=== PATIENT | female | born 1955 | race Two or more races ===

== ENCOUNTER → 2023-09-03 10:44 | Outpatient (REF) | payer MEDICARE, SELFPAY | LOC: HWWDC 10:44 | PROVIDERS: ATTENDING PHYSICIAN Family Medicine | DX: Z12.31 Encounter for screening mammogram for malignant neoplasm of breast (principal) | CPT/HCPCS: 77063; 77067 ==

== ENCOUNTER 2023-10-14 21:50 | Inpatient (IN) | payer MEDICARE, SELFPAY ==
[2023-10-14 15:55] VITALS: BP 132/95
[2023-10-14 16:16] LABS: % Basophils 0.4 % (0-2); % Eosinophils 1.7 % (0-6); % Immature Granulocytes 0.5 % (0-0.5); % Lymphocytes 13.7 % (20.5-51.1); % Monocytes 7.7 % (1.7-9.3); Absolute Basophils 0.1 10^3/uL (0-0.2); Absolute Eosinophils 0.3 10^3/uL (0-0.7); Absolute Immature Granulocytes 0.1 10^3/uL (0-0.05); Absolute Lymphocytes 2.3 10^3/uL (1.2-3.4); Absolute Monocytes 1.3 10^3/uL (0.1-0.6); Absolute Neutrophils 12.5 10^3/uL (1.4-6.5); Hematocrit 43.3 % (37.0-47.0); Mean Corp Hgb Conc. 34.6 g/dL (33.0-37.0); Mean Corpuscular Hgb 29.9 pg (27.0-31.0); Mean Corpuscular Volume 86.3 fL (81.0-99.0); Mean Platelet Volume 9.4 fL (7.4-10.4); Nucleated Red Blood Cells % 0 %; Platelet Count 460 10^3/uL (130-400); Red Blood Cell Count 5.02 10^6/uL (4.20-5.40); Red Cell Dist. Width 12.2 % (11.5-14.5); White Blood Cell Count 16.5 10^3/uL (4.8-10.8)
[2023-10-14 16:29] LABS: ALT (SGPT) 34 U/L (0-35); AST (SGOT) 28 U/L (14-36); Albumin 4.2 g/dl (3.5-5.0); Alkaline Phosphatase 114 U/L (38-126); Blood Urea Nitrogen 15 mg/dl (7-17); Calcium 9.9 mg/dl (8.4-10.2); Carbon Dioxide 27 mmol/L (22-30); Chloride 100 mmol/L (98-107); Glucose 142 mg/dl (70-99); Potassium 3.8 mmol/L (3.5-5.1); Sodium 136 mmol/L (135-145); Total Protein 7.3 g/dl (6.3-8.2); eGFR > 60.00
[2023-10-14 16:41] LABS: Troponin I < 0.012 ng/ml
[2023-10-14 18:33] VITALS: BMI 40.6
[2023-10-14] MEDS: NSS 1000 IV (18:46)
[2023-10-14 19:00] VITALS: BP 131/81
[2023-10-14 19:07] LABS: COVID-19 Antigen Negative (Negative)
[2023-10-14] MEDS: ZOFRAN 4 MG IV (19:31)
--- NOTE | 2023-10-14 19:33 | ED.GENMED ---
History of Present Illness
General
Chief Complaint: Heart Rate Problem
Source: patient
Exam Limitations: none
Time Seen by Provider: 10/14/23 18:29
Travel History
Have you had any contact with someone who has COVID-19?: No
Do you have any symptoms of coronavirus? Fever > 100 degrees, chills, cough, shortness of breath, sore throat, loss of taste or smell, muscle aches, or headache?: No
History of Present Illness
History of Present Illness:
68-year-old female who presents with abdominal pain. Patient presents with right lower quadrant abdominal pain. She admits that she has had a little bit of diarrhea yesterday. No stool today. Has had vomiting and loss of appetite. Symptoms
began this past . Symptoms have persisted and she was advised to come here by her primary care doctor. Has had a history of but no other intra-abdominal surgeries. No shortness of breath.
Past History
Past History
ED Past Medical History: Hypercholesterolemia
ED Past Surgical History: and Orthopedic
Phy Exam
Physical Exam
Physical Exam:
CONSTITUTIONAL Patient alert and oriented to person, place and time. Vital signs reviewed.
HEAD atraumatic, normocephalic.
EYES eyelids normal to inspection, Pupils equally round and reactive to light, Extraocular muscles intact, Conjunctiva normal, Sclera normal.
NECK normal range of motion, Trachea midline, no jugular venous distention.
RESPIRATORY CHEST No respiratory distress noted, Chest expansion equal, Bilateral breath sounds clear.
CARDIOVASCULAR regular and tachycardic
ABDOMEN abdomen significantly distended with no bowel sounds. Tympanitic. Moderate right lower quadrant tenderness, no rebound
BACK normal inspection, no obvious deformities
UPPER EXTREMITY range of motion normal, Motor strength normal, no cyanosis, no edema.
LOWER EXTREMITY range of motion normal, Motor strength normal, no cyanosis, no edema.
NEURO Speech normal, No focal motor deficits, [place] coma scale 15, Memory normal, Cranial Nerves intact to screening exam.
SKIN skin warm, dry, and normal in color.
PSYCHIATRIC patient oriented to person place and time, Normal affect.
Course
Orders/Labs/Results
Orders:
Orders
10/14/23 Dinner
NPO
Allow oral meds: No
Allow clear liquids: No
10/14/23 16:00
Electrocardiogram (*1) Urgent
Reason for Study: Tachycardia
10/14/23 16:10
CMP [Comprehensive Metabolic Panel] Urgent
Complete Blood Count/With Diff Urgent
Troponin I Urgent
10/14/23 18:29
0.9% Sodium Chloride 1000 ml [Nss] 1,000 ml IV BOLUS
10/14/23 18:44
COVID-19 Antigen Urgent
Source: Nasal Swab
Influenza A+B Rapid Molecular Urgent
MYRIAM Source: Nasal Swab
Specimen Description:
10/14/23 19:26
CT Abd/Pel (IV only)-DH only Urgent
Comment:
Reason For Exam: severe RLQ pain, vomiting, abd distention
HYDROmorphone [Dilaudid] 1 mg IV NOW STA
Ondansetron Injectable [Zofran] 4 mg IV NOW STA
10/14/23 19:45
Urinalysis Reflex To Culture Urgent
Date Specimen was Collected: 10/14/23
Time Specimen was Collected: 19:39
Urine Microscopic Reflex Cult Urgent
Urine Culture Urgent
MYRIAM Source: U
Specimen Description:
Date Specimen was Collected: 10/14/23
Time Specimen was Collected: 19:39
10/14/23 20:31
Piperacillin/Tazo 3.375 Gram [Zosyn] 3.375 gram in 50 ml IV NOW
10/14/23 20:46
Lactic Acid Stat
10/14/23 21:12
HYDROmorphone [Dilaudid] 0.25 mg IV PACU-Q5MPRN PRN
HYDROmorphone [Dilaudid] 0.5 mg IV PACU-Q5MPRN PRN
Meperidine [Demerol] 12.5 mg IV PACU-Q5MPRN PRN
Ondansetron Injectable [Zofran] 4 mg IV PACU-ONCEPRN PRN
Prochlorperazine [Compazine] 5 mg IV PACU-ONCEPRN PRN
Notify MD As Directed
Notify physician if: for SDS patients with known or suspected sleep obstructive sleep apnea, monitor in the
PACU.
Notify MD for any apneic/desaturation episodes
O2 Therapy [RESP] Urgent
Titrate/Wean O2 to maintain O2 sat greater than (%): 92
Special Instructions: -Provide supplemental oxygen to achieve O2 sat of 92% or greater.
-After 15 min, may wean O2 and discontinue if patient is able to maintain O2 sat of 92%
or greater during recovery period.
If patient is a discharge home, without oxygen therapy, notify anestheiologist if
unable to maintain O2 SAT of 92% or greater on room air for MD clearance.
10/14/23 21:13
US Anesthesia Guidance Routine
Comment:
Reason For Exam: TAP block
10/14/23 21:15
Dexamethasone Sod Phosphate [Decadron] 20 mg .ROUTE .STK-MED ONE
Lidocaine HCl/Pf [Xylocaine-Mpf 1% Vial] 50 mg .ROUTE .STK-MED ONE
Normosol (Mult Electrolytes) [Normosol-R] 1,000 ml IV PER PROTOCOL
Ondansetron Injectable [Zofran] 4 mg .ROUTE .STK-MED ONE
Propofol [Diprivan] 20 ml .ROUTE .STK-MED
Rocuronium [place] [Rocuronium] 50 mg .ROUTE .STK-MED ONE
10/14/23 21:16
Fentanyl Citrate/Pf [Sublimaze] 100 mcg .ROUTE .STK-MED ONE
Midazolam HCl [Versed] 2 mg .ROUTE .STK-MED ONE
10/14/23 21:19
Bupivacaine Mpf 0.25% [Sensorcaine-Mpf 0.25% Vial] 30 ml .ROUTE .STK-MED ONE
10/14/23 21:39
Admit Patient As Directed
Co-Sign Provider:
Level of Care: Inpatient admission
Assign to:: Medical/Surgical
Physician / Group: Haider / PETE
Diagnosis: Perforated bowel
Reason for Hospitalization: Perforated bowel
Expected length of stay greater than two midnights?: Yes
ELOS- Estimated Length of Stay in days: 7
I certify the patient meets the requirements for IP care: Yes
Code Status As Directed
Resuscitation Status: Full Code
HYDROmorphone [Dilaudid] 0.5 mg IV Q2HPRN PRN
Ketorolac [Toradol] 10 mg IV Q6HPRN PRN
Ondansetron Injectable [Zofran] 4 mg IV Q6HPRN PRN
Activity As Directed
Activity Level: Ambulate
Drains As Directed
Type: Skip Lynch
Location: Abdomen
Gastrointestinal Tubes As Directed
Type: [place] real
To suction?: Yes
Type of suction: Low intermittent
Directions to clamp NG tube: Clamp trial on 10/17 for 4 hours ending at noon
Irrigate tube?: Yes
Irrigant: Tap Water
Frequency: Q4H
Amount in mls: 30
Irrigation Directions: Irrigate Q4H and PRN
Intake/ Output As Directed
Frequency: Per unit guidelines
Vital Signs As Directed
Frequency: Per unit guidelines
10/14/23 21:40
Catheter- Indwelling As Directed
Reason for insertion: Nuvia-Op Remove POD #2
Pneumatic Compression Sleeves As Directed
Type: Knee high
DX Deep Vein Thrombosis Video Routine
10/14/23 21:41
Rx Incentive Spirometry [RESP] Routine
Frequency: q1h while awake
# of times per hour: 10
10/14/23 21:42
Rocuronium [place] [Rocuronium] 50 mg .ROUTE .STK-MED ONE
10/14/23 21:45
Normosol (Mult Electrolytes) [Normosol-R] 1,000 ml IV 80 mls/hr
10/14/23 22:00
Flush (0.9% Sodium Chloride) [Flush (Nss)] See Dose Instructions IV PER PROTOCOL
10/15/23 02:00
Acetaminophen 1000MG/100Ml [Ofirmev] 1,000 mg in 100 ml IV Q6H
Acetaminophen IV Indication:: No IN & No Enteral Access
Piperacillin/Tazo 3.375 Gram [Zosyn] 3.375 gram in 50 ml IV Q6H
10/15/23 04:44
Basic Metabolic Panel IN AM
Complete Blood Count/No Diff IN AM
10/15/23 08:00
Pantoprazole [Protonix IV] 40 mg IV DAILY
10/15/23 18:00
Enoxaparin Sodium [Lovenox] 40 mg SC QPM
10/16/23 06:00
Basic Metabolic Panel IN AM
Complete Blood Count/No Diff IN AM
10/17/23 06:27
Basic Metabolic Panel IN AM
Complete Blood Count/No Diff IN AM
Abnormal Lab Results
10/14/23 10/14/23
16:10 19:45
WBC 16.5 H 10^3/uL
(4.8-10.8)
Plt Count 460 H 10^3/uL
(130-400)
Abs Immat Gran (auto) 0.1 H 10^3/uL
(0-0.05)
Absolute Neuts (auto) 12.5 H 10^3/uL
(1.4-6.5)
Absolute Monos (auto) 1.3 H 10^3/uL
(0.1-0.6)
Neutrophils % 76.0 H %
(42.2-75.2)
Lymphocytes % 13.7 L %
(20.5-51.1)
Glucose 142 H mg/dl
(70-99)
Urine Ketones 1+ A
(Negative)
Ur Occult Blood Reflex 1+ A
(Negative)
Urine Bilirubin 1+ A
(Negative)
Leukocyte Esterase Rfl 1+ A
(Negative)
Urine RBC 3-6 A /HPF
(0-2)
Urine WBC (Reflex) 30-40 A /HPF
(0-5)
Urine Bacteria (Reflex) Few A
(Negative)
Urine Albumin (Reflex) 1+ A
(Neg - Trace)
10/14/23 16:10
10/14/23 16:10
Vital Signs
Initial and Last Documented VS:
Initial Vital Signs
Temp Pulse Resp BP Pulse Ox
99.0 F 144 18 132/95 97
10/14/23 15:55 10/14/23 15:55 10/14/23 15:55 10/14/23 15:55 10/14/23 15:55
Last Documented Vital Signs
Temp Pulse Resp BP Pulse Ox
98.1 F 92 16 149/75 95
10/22/23 14:49 10/22/23 14:49 10/22/23 14:49 10/22/23 14:49 10/22/23 14:49
*Radiology
Radiology exam reviewed: preliminary read by ED provider (Initial read by me shows free air. Likely source small bowel. Surgery consulted)
*Pulse Oximetry
Patient hypoxic: no
*EKG
Interpreted by ED Provider?: Yes
Interpretation: abnormal
Rate: tachycardiac
Rhythm: sinus
[place]: normal axis
Ischemia: non-specific ST changes
*[facility] Laboratory Assistant Interpretation
Rate: tachycardiac
Interpretation: abnormal
Rhythm: sinus
*Critical Care Note
Total Time (30-74mins, 75-104mins- exclusive of procedures): 40 minutes
Data Reviewed
Source: patient
Patient Management
Discussion with other providers: Wet Trimmer (Case discussed with general surgery) and Radiologist (Case discussed with Dr. Cheney)
Escalation/DeEscalation of care consider admission/obs:
Small bowel perforation noted. Case discussed with surgery. Antibiotics given
ED Attending Note
-
Portions of this chart may have been created with voice recognition software.� Occasional wrong word or��sound alike� substitutions may have occurred due to the inherent limitations of voice recognition software.
Discharge Plan
Departure
Patient Disposition: Admit
Date of Disposition: 10/14/23
Time of Disposition: 20:50
Admit to: OR
Presentation/result/management discussed w/ accepting MD/DO: surgery
Discharge Problem:
SBO (small bowel obstruction), Perforated abdominal viscus
Interventions
Interventions:
*Risk Screen - Suicide Last Done: 10/15/23 01:15
*General Assessment Last Done: 10/14/23 19:05
*Neglect/Abuse Screening Last Done: 10/14/23 19:05
ED- Fall Risk Assessment Last Done: 10/14/23 19:05
*ED COVID-19 Vaccine History Last Done: 10/15/23 01:10
*Nursing Disposition Last Done: 10/14/23 21:17
ED- Cardiac Assessment Last Done: 10/14/23 19:21
ED- Pulmonary Assessment Last Done: 10/14/23 19:21
Discharge Date and Time
Discharge Date/Time: 10/14/23 21:18
[2023-10-14] MEDS: DILAUDID 1 MG IV (19:41)
[2023-10-14 19:52] LABS: Urine Albumin 1+ (Neg - Trace); Urine Bilirubin 1+ (Negative); Urine Character Clear (Clear); Urine Color Yellow; Urine Glucose Negative (Negative); Urine Ketone 1+ (Negative); Urine Leukocyte 1+ (Negative); Urine Nitrite Negative (Negative); Urine Occult Blood 1+ (Negative); Urine Specific Gravity 1.025 (<1.030); Urine Urobilinogen 1+ (Neg - 1+)
[2023-10-14 20:00] VITALS: BP 114/75
[2023-10-14 20:02] LABS: Urine Hyaline Cast >15 /LPF (0-2); Urine Squamous Cell 0-2 /LPF (Few)
[2023-10-14 20:03] LABS: Urine Bacteria Few (Negative); Urine White Cell 30-40 /HPF (0-5)
[2023-10-14] MEDS: ZOSYN 50 IV (20:51)
[2023-10-14 21:01] VITALS: BP 121/87
[2023-10-14 21:05] LABS: Lactic Acid 1.2 mmol/L (0.7-2.0)
--- NOTE | 2023-10-14 21:32 | W.SUR.PREOP ---
Pre-Operative Surgical Note
-
I have examined this patient prior to the performance of the scheduled procedure.
The patient's condition is unchanged from the time of the current History and
Physical and the patient is able to undergo the scheduled procedure.
--- NOTE | 2023-10-14 21:32 | HPS.HSE ---
Family Physician
-
Family Physician: Mitzy Hurst MD
Chief Complaint
-
Abdominal pain
History of Present Illness
Patient is a 68 yo F with a PMH of morbid obesity, HLD, osteoarthritis, s/p x 2 and s/p tubal ligation. Ms. Sin presents to the hospital with approximately 4 to 5 days of worsening abdominal pain. She states that her symptoms began
acutely on . She initially attributed her symptoms to a stomach bug. She called her PCP today who instructed her to present to the ED. Associated fevers and chills. Associated nausea, and 1 episode of emesis. Looser stools yesterday.
No recent flatus or BMs today. No prior similar episodes. She takes meloxicam for osteoarthritis of her hands. She reports having a colonoscopy 2 years ago with a single polyp removed (No report available).
Medical History
Past Medical History
Past Medical History: Reports Hypercholesterolemia and Other (Morbid obesity, osteoarthritis)
Past Surgical History: Reports and Gynocological (Tubal ligation)
Social History
Tobacco: Former Smoker
Alcohol: Occasional
Drug: None
Family History
Family History: Not pertinent
Allergies / Home Medications
Allergies reflects when Allergies were last updated in [employer].
Home Medications with original date entered in [employer]
Allergy/Medication List:
NKDA
Review of Systems
-
A 12 point ROS was completed and negative except as noted: Yes
Physical Exam
Vital Signs
Vital Signs
Temp Pulse Resp BP Pulse Ox
99.1 F 111 12 114/75 93
10/14/23 19:00 10/14/23 21:00 10/14/23 21:00 10/14/23 20:00 10/14/23 21:00
Physical Exam
General: Well Developed, Well Nourished, No Apparent Distress and Pain
HEENT: NormoCephalic and Anicteric
Respiratory: Non Labored Respirations
Cardiac: Irregular Rhythm (Tachycardic)
GI: Soft, Tender (Diffusely), Distended and Other (Morbid obesity limits exam, peritoneal with involuntary guarding, no rebound)
Musculoskeletal: No Edema
Skin: Warm and Dry
Neuro: Nonfocal/grossly intact
Laboratory Results
-
10/14/23 16:10
10/14/23 16:10
Laboratory Results
Lactic Acid 1.2 mmol/L (0.7-2.0) 10/14/23 20:46
Total Bilirubin 1.0 mg/dl (0.2-1.3) 10/14/23 16:10
AST 28 U/L (14-36) 10/14/23 16:10
ALT 34 U/L (0-35) 10/14/23 16:10
Alkaline Phosphatase 114 U/L (38-126) 10/14/23 16:10
Troponin I < 0.012 ng/ml 10/14/23 16:10
Data Reviewed
-
CT Scan: Image Personally Visualized and interpreted
Lab Data: Labs Reviewed by me
Impression/Plan
-
IMPRESSION:
Patient is a 68 yo F p/w perforated viscus
Differential for causes of perforated viscus were discussed. Specifically we discussed gastric or duodenal ulcers, small bowel diverticuli, and diverticulosis. CT scan imaging was reviewed and notable for moderate volume of free air with
significant inflammation and dilation of the small bowel. Given the degree of free air and signs of sepsis with tachycardia, fevers, and elevated WBC recommend operative exploration. We discussed that nonoperative management strategies
(antibiotics) were likely to be insufficient. Patient agrees to proceed with surgery.
Plan for a exploratory laparotomy, possible bowel resection, possible ostomy. The procedure itself, as well as the risks, benefits, and alternatives was discussed. Specifically, we discussed the risks of bleeding, infection, injury to surrounding
structures (bowel, bladder), hernia formation, wound complications, anastomotic leak, and cardiopulmonary complications from general anesthesia. Typical postprocedure recovery was discussed. All questions answered. Consent signed.
PLAN:
-- Exploratory laparotomy, possible bowel resection, possible ostomy
-- NPO, IVF
-- Antibiotics: Zosyn
-- Admit postoperatively, level of care TBD based on operative findings and stability
--- NOTE | 2023-10-14 23:37 | W.IMMPOSTOP ---
Addendum entered and electronically signed by Irvin Maloney MD 10/14/23 23:54:
[facility]# [id number]
Original Note:
Surgical Immed Post Op Note
-
Primary Surgeon: Haider
Assisting Surgeon: None
Pre-op Diagnosis: Perforated viscous
Post-op Diagnosis: Perforated small bowel
Procedure Performed: Exploratory laparotomy, small bowel resection with primary anastomosis
Anesthesia Type: General
Specimen / Cultures:
1. Small bowel
Estimated Blood Loss: 23 cc
Complications: None
Operative Findings:
1. Minimal contamination, small bowel adherent down to sigmoid mesentery, small pinpoint hole identified in jejunum
2. Sigmoid without significant diverticula, healthy pliable, no evidence of perforation, rigid sig leak test negative
3. Small bowel run from TI to LT
4. SBR with stapled [id number] anastomosis (Neil technique), staple line oversewn, mesenteric defect closed
[2023-10-14 23:55] VITALS: BP 131/81; BP 160/87
[2023-10-15] VITALS (12 sets, daily range): BP systolic 109–152; BP diastolic 46–112
[2023-10-15] MEDS: DILAUDID 0.5 MG IV ×4 (00:04→22:48)
[2023-10-15] MEDS: NORMOSOL-R 1000 IV ×3 (00:30→16:28)
--- NOTE | 2023-10-15 01:00 | PTCARENOTE ---
Received pt from PACU s/p Exploratory laparotomy, small bowel resection with primary anastomosis
[2023-10-15] MEDS: ZOSYN 50 IV ×4 (01:26→20:35)
--- NOTE | 2023-10-15 01:30 | PTCARENOTE ---
Received pt from PACU s/p exploratory laparotomy, small bowel resection with primary anastomosis. Medsurg order> afebrile, HR124, RR18, BP127/86, pox 93% 4LNC, no c/o pain. Normosol infusing thru RAC at 120ml/hr. Lt nare NG tube- low intermittent
suction. Midline abdominal Aquacell dressing w/ scant drainage. PMH and medications reviewed by this RN and pt. Plan of care discussed. Pt oriented to room. Call [place] within reach.
[2023-10-15] MEDS: NSS (PRESERVATIVE FREE) 0.125 ML IV (02:04)
[2023-10-15] MEDS: ATIVAN 0.25 MG IV (02:04)
[2023-10-15] MEDS: OFIRMEV 100 IV ×3 (02:21→20:13)
[2023-10-15 05:23] LABS: Hematocrit 41.2 % (37.0-47.0); Hemoglobin 13.7 g/dL (12.0-16.0); Mean Corp Hgb Conc. 33.3 g/dL (33.0-37.0); Mean Corpuscular Hgb 29.7 pg (27.0-31.0); Mean Corpuscular Volume 89.4 fL (81.0-99.0); Mean Platelet Volume 9.2 fL (7.4-10.4); Platelet Count 397 10^3/uL (130-400); Red Blood Cell Count 4.61 10^6/uL (4.20-5.40); Red Cell Dist. Width 12.4 % (11.5-14.5); White Blood Cell Count 17.3 10^3/uL (4.8-10.8)
[2023-10-15 05:49] LABS: Blood Urea Nitrogen 13 mg/dl (7-17); Calcium 8.7 mg/dl (8.4-10.2); Carbon Dioxide 23 mmol/L (22-30); Chloride 104 mmol/L (98-107); Estimated Creatinine Clearance 95 ml/min; Glucose 148 mg/dl (70-99); Potassium 4.2 mmol/L (3.5-5.1); Sodium 137 mmol/L (135-145); eGFR > 60.00
--- NOTE | 2023-10-15 07:44 | W.PN.GS2 ---
Today's Communication / Plan
-
-- NPO, NGT; X-ray to confirm placement
-- IVF, dehydration on presentation
-- Abx: Zosyn, sepsis present on presentation, plan for total of 10 days
Assessment / Plan
-
Patient is a 68 yo F POD#1 s/p exploratory laparotomy, small bowel resection with primary anastomosis, rigid sigmoidoscopy
Recovering well. No postoperative concerns. NGT found to be coiled in back of throat will obtain x-ray to confirm placement and either replace or reposition based on this imaging.
-- NPO, NGT; X-ray to confirm placement
-- IVF, dehydration on presentation
-- Abx: Zosyn, sepsis present on presentation, plan for total of 10 days
-- Pain control: Tylenol, Toradol, IV Dilaudid PRN
-- Perera, orders for removal on POD#2
-- Holding home medications while NPO
-- DVT: Lovenox
-- GI: Protonix while NPO with NGT
-- Floor status
Subjective Data
-
Date of Service: October 15, 2023
Feels improved. Abdominal soreness and bloating. No nausea or emesis. No flatus or BM. No fevers.
Objective Data
-
Intake and Output
10/14/23 10/15/23 10/16/23
06:59 06:59 06:59
Intake Total 2029 / 2029
Output Total 280 / 280
Balance 1750 / 1750
Intake:
IV fluids (Total) 1820 / 1820
Normosol 100 / 100
nss 1000 / 1000
IV piggybacks 150 / 150
Amount instilled into GI Tube ( 60 / 60
Total)
[place] S[place] 60 / 60
Output:
Gastrointestinal tube output ( 30 / 30
Total)
[place] 30 / 30
Urine, [place] 250 / 250
Vital Signs
Temp Pulse Resp BP Pulse Ox
97.9 F 105 22 119/54 95
10/15/23 05:42 10/15/23 05:42 10/15/23 05:42 10/15/23 05:42 10/15/23 05:42
Lab Results
10/15/23 04:44
10/15/23 04:44
Calcium 8.7 mg/dl (8.4-10.2) 10/15/23 04:44
Total Bilirubin 1.0 mg/dl (0.2-1.3) 10/14/23 16:10
AST 28 U/L (14-36) 10/14/23 16:10
ALT 34 U/L (0-35) 10/14/23 16:10
Alkaline Phosphatase 114 U/L (38-126) 10/14/23 16:10
Total Protein 7.3 g/dl (6.3-8.2) 10/14/23 16:10
Albumin 4.2 g/dl (3.5-5.0) 10/14/23 16:10
Physical Exam
-
Gen: NAD
HEENT: minimal outputs
Abd: soft, obese, moderate tenderness to palpation, less distended, non-peritoneal, midline with shadowing at inferior aspect of dressing
[2023-10-15] MEDS: PROTONIX IV 40 MG IV (07:55)
[2023-10-15] MEDS: NSS (PRESERVATIVE FREE) 10 ML IV (07:55)
--- NOTE | 2023-10-15 13:01 | CM ---
Reviewed the chart notes and spoke with the patient at the bedside. The resides alone in a mobile home with four steps to enter. The patient reports no DME/VN/SNF in the past. The patient confirmed her pharmacy of choice [facility]. Patient currently with supplemental O2 and a NGT. CM continues to be available to patient/family and is monitoring medical plan for needs at discharge.
Plan: Discharge to home when medically stable. No needs anticipated.
[2023-10-15] MEDS: OFIRMEV IV (13:17)
[2023-10-15] MEDS: TORADOL 10 MG IV (13:26)
--- NOTE | 2023-10-15 15:26 | PTCARENOTE ---
Morgan text to Hadier RESENDIZ about pt's 1530 temp being 100.5.
[2023-10-15] MEDS: LOVENOX 40 MG SC (17:24)
[2023-10-16] MEDS: ZOSYN 50 IV ×4 (01:02→19:50)
[2023-10-16] MEDS: NORMOSOL-R 1000 IV ×3 (01:02→21:20)
[2023-10-16] MEDS: DILAUDID 0.5 MG IV ×2 (01:54→08:43)
[2023-10-16 03:58] VITALS: BP 132/85
[2023-10-16 06:15] LABS: Hematocrit 33.2 % (37.0-47.0); Mean Corp Hgb Conc. 33.1 g/dL (33.0-37.0); Mean Corpuscular Volume 90.5 fL (81.0-99.0); Mean Platelet Volume 9.1 fL (7.4-10.4); Platelet Count 299 10^3/uL (130-400); Red Blood Cell Count 3.67 10^6/uL (4.20-5.40); Red Cell Dist. Width 12.5 % (11.5-14.5); White Blood Cell Count 12.8 10^3/uL (4.8-10.8)
[2023-10-16 06:49] LABS: Blood Urea Nitrogen 9 mg/dl (7-17); Calcium 8.4 mg/dl (8.4-10.2); Carbon Dioxide 32 mmol/L (22-30); Chloride 102 mmol/L (98-107); Estimated Creatinine Clearance 95 ml/min; Glucose 88 mg/dl (70-99); Potassium 4.1 mmol/L (3.5-5.1); Sodium 135 mmol/L (135-145); eGFR > 60.00
[2023-10-16 07:50] VITALS: BP 131/87
[2023-10-16] MEDS: NSS (PRESERVATIVE FREE) 10 ML IV (08:39)
[2023-10-16] MEDS: PROTONIX IV 40 MG IV (08:39)
--- NOTE | 2023-10-16 09:06 | W.PN.GS2 ---
Today's Communication / Plan
-
-- No major changes
-- Benadryl for sleep aid
-- Continue NPO, IVF, abx
Assessment / Plan
-
Patient is a 68 yo F POD#2 s/p exploratory laparotomy, small bowel resection with primary anastomosis, rigid sigmoidoscopy
Expected ileus and recovery following sepsis on presentation with perforated viscous.
-- NPO, NGT
-- IVF decrease rate
-- Abx: Zosyn, sepsis present on presentation, plan for total of 10 days
-- Pain control: Tylenol, Toradol, IV Dilaudid PRN
-- Dilma, removed this AM
-- Holding home medications while NPO, Bendryl for sleep
-- DVT: Lovenox
-- GI: Protonix while NPO with NGT
-- Floor status
Subjective Data
-
Date of Service: October 16, 2023
Reports bloating and upper abdominal pain. No nausea or emesis. No flatus ro BM. Febrile to 100.5 yesterday, currently afebrile. Denies SOB. Minimal ambulation.
Objective Data
-
Intake and Output
10/15/23 10/16/23 10/17/23
06:59 06:59 06:59
Intake Total 2029 2820 / 2820
Output Total 280 / 280 2150 / 2150
Balance 1750 / 1750 670 / 670
Intake:
Oral fluids 0 / 0
IV fluids (Total) 1820 / 1820 2460 / 2460
Normosol 100 / 100
nss 1000 / 1000
IV piggybacks 150 / 150 200 / 200
Amount instilled into GI Tube ( 60 / 60 160 / 160
Total)
[place] 60 / 60 160 / 160
Output:
Gastrointestinal tube output ( 550 / 550
Total)
[place] 550 / 550
Urine, [place] 250 / 250 1600 / 1600
Vital Signs
Temp Pulse Resp BP Pulse Ox
99.2 F 107 18 132/85 92
10/16/23 03:58 10/16/23 03:58 10/16/23 03:58 10/16/23 03:58 10/16/23 03:58
Lab Results
10/16/23 06:00
10/16/23 06:00
Calcium 8.4 mg/dl (8.4-10.2) 10/16/23 06:00
Total Bilirubin 1.0 mg/dl (0.2-1.3) 10/14/23 16:10
AST 28 U/L (14-36) 10/14/23 16:10
ALT 34 U/L (0-35) 10/14/23 16:10
Alkaline Phosphatase 114 U/L (38-126) 10/14/23 16:10
Total Protein 7.3 g/dl (6.3-8.2) 10/14/23 16:10
Albumin 4.2 g/dl (3.5-5.0) 10/14/23 16:10
Physical Exam
-
Gen: NAD
Abd: obese, soft, tender in upper abdomen, distended, non-peritoneal, midline c/d/i
[2023-10-16] MEDS: TORADOL 10 MG IV ×2 (11:28→17:54)
--- NOTE | 2023-10-16 15:41 | CM ---
Chart reviewed and patient was admitted from home, patient lives alone. Patient with NGT, case therapist will follow with patient progress and assist with discharge planning needs.
Plan; Home when stable.
[2023-10-16 15:45] VITALS: BP 140/84
[2023-10-16] MEDS: LOVENOX 40 MG SC (17:54)
[2023-10-16 20:03] VITALS: BP 129/78
[2023-10-16] MEDS: BENADRYL 12.5 MG IV (21:17)
[2023-10-16 23:23] VITALS: BP 145/100
[2023-10-17] MEDS: ZOSYN 50 IV ×4 (01:01→19:53)
[2023-10-17 03:19] VITALS: BMI 41.7
[2023-10-17] MEDS: TORADOL 10 MG IV ×3 (03:56→17:36)
[2023-10-17 06:49] LABS: Hematocrit 30.8 % (37.0-47.0); Hemoglobin 10.4 g/dL (12.0-16.0); Mean Corp Hgb Conc. 33.8 g/dL (33.0-37.0); Mean Corpuscular Hgb 29.9 pg (27.0-31.0); Mean Corpuscular Volume 88.5 fL (81.0-99.0); Mean Platelet Volume 8.9 fL (7.4-10.4); Platelet Count 279 10^3/uL (130-400); Red Blood Cell Count 3.48 10^6/uL (4.20-5.40); Red Cell Dist. Width 12.3 % (11.5-14.5); White Blood Cell Count 10.8 10^3/uL (4.8-10.8)
[2023-10-17 07:15] LABS: Blood Urea Nitrogen 11 mg/dl (7-17); Calcium 8.2 mg/dl (8.4-10.2); Carbon Dioxide 26 mmol/L (22-30); Chloride 102 mmol/L (98-107); Estimated Creatinine Clearance 96 ml/min; Glucose 61 mg/dl (70-99); Potassium 3.6 mmol/L (3.5-5.1); Sodium 135 mmol/L (135-145); eGFR > 60.00
[2023-10-17 07:18] VITALS: BP 137/85
--- NOTE | 2023-10-17 07:38 | W.PN.GS2 ---
Today's Communication / Plan
-
-- NPO, NGT
-- mIVF
Assessment / Plan
-
Patient is a 68 yo F POD#3 s/p exploratory laparotomy, small bowel resection with primary anastomosis, rigid sigmoidoscopy
Expected ileus and recovery following sepsis on presentation with perforated viscous.
-- NPO, NGT
-- mIVF
-- Abx: Zosyn, sepsis present on presentation, plan for total of 10 days
-- Pain control: Tylenol, Toradol, IV Dilaudid PRN
-- Holding home medications while NPO, Bendryl for sleep
-- DVT: Lovenox
-- GI: Protonix while NPO with NGT
-- OOB/ambulate
-- Floor status
Subjective Data
-
Date of Service: October 17, 2023
Feels improved, less pain and bloating. Passing minimal amounts of flatus, no BM. No nausea or vomiting. Afebrile. Voiding.
Objective Data
-
Intake and Output
10/16/23 10/17/23 10/18/23
06:59 06:59 06:59
Intake Total 2820 / 2820 2340 / 2340
Output Total 2150 / 2150 600 / 600
Balance 670 / 670 1740 / 1740
Intake:
Oral fluids 0 / 0 200 / 200
IV fluids (Total) 2460 / 2460 1760 / 1760
IV piggybacks 200 / 200 200 / 200
Amount instilled into GI Tube ( 160 / 160 180 / 180
Total)
[place] S[place] 160 / 160 180 / 180
Output:
Gastrointestinal tube output ( 550 / 550 600 / 600
Total)
[place] 550 / 550 600 / 600
Urine, Perera 1600 / 1600
Other:
Number of approximated MODERATE 1
amounts of urine
Vital Signs
Temp Pulse Resp BP Pulse Ox
98.6 F 101 16 145/100 95
10/17/23 03:19 10/16/23 23:23 10/16/23 23:23 10/16/23 23:23 10/16/23 23:23
Lab Results
10/17/23 06:27
10/17/23 06:27
Calcium 8.2 mg/dl (8.4-10.2) L 10/17/23 06:27
Total Bilirubin 1.0 mg/dl (0.2-1.3) 10/14/23 16:10
AST 28 U/L (14-36) 10/14/23 16:10
ALT 34 U/L (0-35) 10/14/23 16:10
Alkaline Phosphatase 114 U/L (38-126) 10/14/23 16:10
Total Protein 7.3 g/dl (6.3-8.2) 10/14/23 16:10
Albumin 4.2 g/dl (3.5-5.0) 10/14/23 16:10
Physical Exam
-
Gen: NAD
Abd: soft, minimal tenderness, distended, non-peritoneal, dressing c/d/i
[2023-10-17] MEDS: NSS (PRESERVATIVE FREE) 10 ML IV (07:44)
[2023-10-17] MEDS: PROTONIX IV 40 MG IV (07:44)
[2023-10-17] MEDS: D5/0.45%NSS with KCL 20 MEQ 1000 IV (08:41)
--- NOTE | 2023-10-17 12:54 | CM ---
Reviewed the chart notes. Patient remains NPO with NGT. Now on RA. CM continues to be available to patient/family and is monitoring medical plan for needs at discharge.
Plan: Discharge to home when medically stable.
[2023-10-17 15:49] VITALS: BP 155/60
[2023-10-17] MEDS: LOVENOX 40 MG SC (17:04)
[2023-10-17] MEDS: BENADRYL 12.5 MG IV (21:31)
[2023-10-17 23:30] VITALS: BP 146/91
[2023-10-18] MEDS: D5/0.45%NSS with KCL 20 MEQ 1000 IV ×2 (00:10→14:13)
[2023-10-18] MEDS: TORADOL 10 MG IV ×4 (00:13→22:11)
[2023-10-18] MEDS: ZOSYN 50 IV ×4 (02:21→20:42)
[2023-10-18] MEDS: DILAUDID 0.5 MG IV (02:32)
[2023-10-18 04:46] VITALS: BMI 41.5
--- NOTE | 2023-10-18 07:43 | W.PN.GS2 ---
Today's Communication / Plan
-
-- NGT clamp trial
Assessment / Plan
-
Patient is a 68 yo F POD#4 s/p exploratory laparotomy, small bowel resection with primary anastomosis, rigid sigmoidoscopy
Expected ileus and recovery following sepsis on presentation with perforated viscous. Signs of clinical recovery.
-- NGT clamp trial
-- NPO
-- mIVF
-- Abx: Zosyn, sepsis present on presentation, plan for total of 10 days
-- Pain control: Tylenol, Toradol, IV Dilaudid PRN
-- Holding home medications while NPO, Bendryl for sleep
-- DVT: Lovenox
-- GI: Protonix while NPO with NGT
-- OOB/ambulate
-- Floor status
Subjective Data
-
Date of Service: October 18, 2023
Feels improved. No major complaints. No nausea or vomiting. Passing flatus, no BM. Ambulating. Voiding. Afebrile.
Objective Data
-
Intake and Output
10/17/23 10/18/23 10/19/23
06:59 06:59 06:59
Intake Total 2340 / 2340 2426 / 2426
Output Total 600 / 600 600 / 600
Balance 1740 / 1740 1826 / 1826
Intake:
Oral fluids 200 / 200 480 / 480
IV fluids (Total) 1760 / 1760 1650 / 1650
IV piggybacks 200 / 200 200 / 200
Amount instilled into GI Tube ( 180 / 180 96 / 96
Total)
[place] Sump 180 / 180 96 / 96
Output:
Gastrointestinal tube output ( 600 / 600 600 / 600
Total)
[place]ty Sump 600 / 600 600 / 600
Other:
Number of approximated MODERATE 1 5
amounts of urine
Vital Signs
Temp Pulse Resp BP Pulse Ox
98.4 F 90 17 146/91 95
10/17/23 23:30 10/17/23 23:30 10/17/23 23:30 10/17/23 23:30 10/17/23 23:30
Lab Results
10/17/23 06:27
10/17/23 06:27
Calcium 8.2 mg/dl (8.4-10.2) L 10/17/23 06:27
Total Bilirubin 1.0 mg/dl (0.2-1.3) 10/14/23 16:10
AST 28 U/L (14-36) 10/14/23 16:10
ALT 34 U/L (0-35) 10/14/23 16:10
Alkaline Phosphatase 114 U/L (38-126) 10/14/23 16:10
Total Protein 7.3 g/dl (6.3-8.2) 10/14/23 16:10
Albumin 4.2 g/dl (3.5-5.0) 10/14/23 16:10
Physical Exam
-
Gen: NAD
Abd: soft, obese, mildly tender, mildly distended, non-peritoneal, midline dressing with minimal shadowing inferiorly
[2023-10-18 07:55] VITALS: BP 163/92
[2023-10-18] MEDS: NSS (PRESERVATIVE FREE) 10 ML IV (08:18)
[2023-10-18] MEDS: PROTONIX IV 40 MG IV (08:24)
[2023-10-18 10:56] VITALS: BMI 41.5
--- NOTE | 2023-10-18 12:57 | CM ---
Reviewed the chart notes. Per surgery, NGT clamp trial and NPO continues. CM continues to be available to patient/family and is monitoring medical plan for needs at discharge.
Plan: Discharge to home when medically stable.
[2023-10-18 15:47] VITALS: BP 137/89
[2023-10-18] MEDS: LOVENOX 40 MG SC (17:42)
[2023-10-18] MEDS: ZOLOFT 50 MG PO (20:42)
[2023-10-18] MEDS: BENADRYL 12.5 MG IV (22:14)
[2023-10-18 23:37] VITALS: BP 150/85
[2023-10-19] MEDS: ZOSYN 50 IV ×4 (03:51→20:43)
[2023-10-19 07:49] VITALS: BP 153/93
[2023-10-19] MEDS: NSS (PRESERVATIVE FREE) 10 ML IV (09:49)
[2023-10-19] MEDS: PROTONIX IV 40 MG IV (09:50)
[2023-10-19] MEDS: TORADOL 10 MG IV (09:55)
--- NOTE | 2023-10-19 11:34 | W.PN.GS2 ---
Today's Communication / Plan
-
Advance to FLD
Assessment / Plan
-
Patient is a 68 yo F POD#5 s/p exploratory laparotomy, small bowel resection with primary anastomosis, rigid sigmoidoscopy
Expected ileus and recovery following sepsis on presentation with perforated viscous.
Signs of clinical recovery.
NGT out yesterday, tolerating clears with +bm/flatus
-- Advance to FLD
-- Abx: Zosyn, sepsis present on presentation, plan for total of 10 days
-- Pain control: Tylenol, Toradol, PO Tramadol, dilaudid for breakthrough
-- Resume Zoloft
-- DVT ppx: Lovenox
-- GI ppx: Protonix
-- OOB/ambulate
-- OK to shower
Subjective Data
-
Date of Service: October 19, 2023
Patient seen and examined at bedside with Dr. Klein. OOB to chair and in her own [facility]. Tolerating clears, denies n/v. Passing stools/flatus. Pain well managed.
Objective Data
-
Intake and Output
10/18/23 10/19/23 10/20/23
06:59 06:59 06:59
Intake Total 2426 / 2426 100 / 100 580 / 580
Output Total 600 / 600
Balance 1826 / 1826 100 / 100 580 / 580
Intake:
Oral fluids 480 / 480 580 / 580
IV fluids (Total) 1650 / 1650
IV piggybacks 200 / 200 100 / 100
Amount instilled into GI Tube (
Total)
Floyd Sump /
Output:
Gastrointestinal tube output ( 600 / 600
Total)
Floyd Sump 600 / 600
Other:
Number of approximated MODERATE 5 2 2
amounts of urine
Vital Signs
Temp Pulse Resp BP Pulse Ox
98.8 F 87 14 153/93 98
10/19/23 07:49 10/19/23 07:49 10/19/23 07:49 10/19/23 07:49 10/19/23 07:49
Lab Results
10/17/23 06:27
10/17/23 06:27
Calcium 8.2 mg/dl (8.4-10.2) L 10/17/23 06:27
Total Bilirubin 1.0 mg/dl (0.2-1.3) 10/14/23 16:10
AST 28 U/L (14-36) 10/14/23 16:10
ALT 34 U/L (0-35) 10/14/23 16:10
Alkaline Phosphatase 114 U/L (38-126) 10/14/23 16:10
Total Protein 7.3 g/dl (6.3-8.2) 10/14/23 16:10
Albumin 4.2 g/dl (3.5-5.0) 10/14/23 16:10
Physical Exam
-
Gen: NAD
Abd: soft, obese, mildly tender, mildly distended, non-peritoneal
Incision c,d,i. Dressing changed.
[2023-10-19] MEDS: ULTRAM 50 MG PO (14:17)
[2023-10-19 16:20] VITALS: BP 147/82
[2023-10-19] MEDS: LOVENOX 40 MG SC (17:30)
[2023-10-19] MEDS: ZOLOFT 50 MG PO (20:43)
[2023-10-19] MEDS: BENADRYL 12.5 MG IV (22:23)
[2023-10-19] MEDS: DILAUDID 0.5 MG IV (22:44)
[2023-10-19 23:34] VITALS: BP 139/76
[2023-10-20] MEDS: ZOSYN 50 IV ×4 (02:45→20:20)
[2023-10-20 08:00] VITALS: BP 130/70
[2023-10-20] MEDS: NSS (PRESERVATIVE FREE) 10 ML IV (08:43)
[2023-10-20] MEDS: PROTONIX IV 40 MG IV (08:44)
[2023-10-20] MEDS: ULTRAM 50 MG PO ×2 (08:52→16:56)
[2023-10-20] MEDS: ZOFRAN 4 MG IV (08:54)
--- NOTE | 2023-10-20 09:25 | W.PN.GS2 ---
Addendum entered and electronically signed by Johnny Klein MD 10/20/23 14:16:
I saw and examined the patient.
The LMSW's note was reviewed and I agree with the note.
Comment:
Seen with LMSW in am.
Some nausea and discomfort.
Vitals ok. WBC up to 15.3.
Abdomen mildly tender, mildly distended. Incision ok.
Continue fulls.
Watch WBC.
OOB.
Continue antibiotics.
Original Note:
Today's Communication / Plan
-
Continue FLD
Labs this am
Assessment / Plan
-
Patient is a 68 yo F POD#6 s/p exploratory laparotomy, small bowel resection with primary anastomosis, rigid sigmoidoscopy
Signs of clinical recovery.
Mild nausea today, but passing stools/flatus
AFVSS
-- Continue full liquids
-- Will check labs this am: BMP, CBC
-- Abx: Zosyn, sepsis present on presentation, plan for total of 10 days
-- Pain control: Tylenol, Toradol, PO Tramadol, dilaudid for breakthrough
-- DVT ppx: Lovenox
-- GI ppx: Protonix
-- OOB/ambulate
-- OK to shower
Subjective Data
-
Date of Service: October 20, 2023
Patient seen and examined at bedside. Denies vomiting but has had a little intermittent nausea. She has been passing flatus/stool. Pain well controlled. Not feeling as good today as yesterday, more fatigued.
Objective Data
-
Intake and Output
10/19/23 10/20/23 10/21/23
06:59 06:59 06:59
Intake Total 100 / 100 970 / 970
Balance 100 / 100 970 / 970
Intake:
Oral fluids 820 / 820
IV fluids (Total) 50 / 50
IV piggybacks 100 / 100 100 / 100
Other:
Number of approximated MODERATE 2 2
amounts of urine
Vital Signs
Temp Pulse Resp BP Pulse Ox
99.6 F 91 16 130/70 96
10/20/23 08:00 10/20/23 08:00 10/20/23 08:00 10/20/23 08:00 10/20/23 08:00
Lab Results
10/17/23 06:27
10/17/23 06:27
Calcium 8.2 mg/dl (8.4-10.2) L 10/17/23 06:27
Total Bilirubin 1.0 mg/dl (0.2-1.3) 10/14/23 16:10
AST 28 U/L (14-36) 10/14/23 16:10
ALT 34 U/L (0-35) 10/14/23 16:10
Alkaline Phosphatase 114 U/L (38-126) 10/14/23 16:10
Total Protein 7.3 g/dl (6.3-8.2) 10/14/23 16:10
Albumin 4.2 g/dl (3.5-5.0) 10/14/23 16:10
Physical Exam
-
Gen: NAD
Abd: soft, obese, mildly tender, mildly distended, non-peritoneal
Incision with intact aditi, dressing intact
[2023-10-20 09:43] LABS: Hematocrit 31.1 % (37.0-47.0); Hemoglobin 10.8 g/dL (12.0-16.0); Mean Corp Hgb Conc. 34.7 g/dL (33.0-37.0); Mean Corpuscular Hgb 30.2 pg (27.0-31.0); Mean Corpuscular Volume 86.9 fL (81.0-99.0); Mean Platelet Volume 8.6 fL (7.4-10.4); Platelet Count 335 10^3/uL (130-400); Red Blood Cell Count 3.58 10^6/uL (4.20-5.40); Red Cell Dist. Width 12.2 % (11.5-14.5); White Blood Cell Count 15.3 10^3/uL (4.8-10.8)
[2023-10-20 10:16] LABS: Blood Urea Nitrogen 4 mg/dl (7-17); Calcium 8.5 mg/dl (8.4-10.2); Carbon Dioxide 32 mmol/L (22-30); Chloride 101 mmol/L (98-107); Estimated Creatinine Clearance 96 ml/min; Glucose 117 mg/dl (70-99); Magnesium 1.8 mg/dl (1.6-2.3); Phosphorus 3.6 mg/dl (2.5-4.5); Potassium 3.4 mmol/L (3.5-5.1); Sodium 137 mmol/L (135-145); eGFR > 60.00
[2023-10-20 15:00] VITALS: BP 116/66
[2023-10-20] MEDS: TYLENOL 650 MG PO (16:56)
[2023-10-20] MEDS: LOVENOX 40 MG SC (16:57)
[2023-10-20] MEDS: KLOR-CON 20 MEQ PO (17:04)
[2023-10-20] MEDS: ZOLOFT 50 MG PO (21:24)
[2023-10-20] MEDS: BENADRYL 12.5 MG IV (21:24)
[2023-10-20 23:20] VITALS: BP 120/80
[2023-10-21] MEDS: ZOSYN 50 IV ×4 (01:00→21:08)
[2023-10-21] MEDS: TYLENOL 650 MG PO (04:52)
[2023-10-21 05:05] LABS: Hematocrit 31.9 % (37.0-47.0); Hemoglobin 10.9 g/dL (12.0-16.0); Mean Corp Hgb Conc. 34.2 g/dL (33.0-37.0); Mean Corpuscular Hgb 30.2 pg (27.0-31.0); Mean Corpuscular Volume 88.4 fL (81.0-99.0); Mean Platelet Volume 8.7 fL (7.4-10.4); Platelet Count 308 10^3/uL (130-400); Red Blood Cell Count 3.61 10^6/uL (4.20-5.40); Red Cell Dist. Width 12.2 % (11.5-14.5)
[2023-10-21] MEDS: ZOFRAN 4 MG IV (05:20)
[2023-10-21 05:32] LABS: ALT (SGPT) 17 U/L (0-35); AST (SGOT) 20 U/L (14-36); Albumin 2.6 g/dl (3.5-5.0); Alkaline Phosphatase 66 U/L (38-126); Blood Urea Nitrogen 4 mg/dl (7-17); Calcium 8.4 mg/dl (8.4-10.2); Carbon Dioxide 34 mmol/L (22-30); Chloride 100 mmol/L (98-107); Estimated Creatinine Clearance 96 ml/min; Glucose 100 mg/dl (70-99); Potassium 3.6 mmol/L (3.5-5.1); Sodium 135 mmol/L (135-145); Total Bilirubin 0.4 mg/dl (0.2-1.3); Total Protein 5.1 g/dl (6.3-8.2); eGFR > 60.00
[2023-10-21 08:00] VITALS: BP 126/67
[2023-10-21] MEDS: PROTONIX IV 40 MG IV (08:51)
[2023-10-21] MEDS: NSS (PRESERVATIVE FREE) 10 ML IV (08:52)
[2023-10-21] MEDS: FLUSH (NSS) 2 FLUSH IV (08:52)
--- NOTE | 2023-10-21 09:06 | W.PN.GS2 ---
Today's Communication / Plan
-
Advance diet.
Will reexamine later today to evaluate periumbilical portion of the incision. May need to remove some aditi.
Assessment / Plan
-
Patient is a 68 yo F POD#7 s/p exploratory laparotomy, small bowel resection with primary anastomosis, rigid sigmoidoscopy. Expected ileus, resolving. Persistent leukocytosis reactive inflammation versus SSI
-- Will advance to a low residue diet.
-- Will check labs this am: BMP, CBC
-- Abx: Zosyn, sepsis present on presentation, plan for total of 10 days
-- Pain control: Tylenol, Toradol, PO Tramadol, dilaudid for breakthrough
-- DVT ppx: Lovenox
-- GI ppx: Protonix
-- OOB/ambulate
-- OK to shower
Time Spent
Total Time Spent with Patient (in minutes): 20
Subjective Data
-
Date of Service: October 21, 2023
Interval Events:
No acute events overnight. Slept well. Pain Controlled. Denies Nausea/Vomiting, +bowel function. Tolerating diet.
Objective Data
-
Intake and Output
10/20/23 10/21/23 10/22/23
06:59 06:59 06:59
Intake Total 970 / 970 1390 / 1390
Balance 970 / 970 1390 / 1390
Intake:
Oral fluids 820 / 820 1140 / 1140
IV fluids (Total) 50 / 50 50 / 50
IV piggybacks 100 / 100 200 / 200
Other:
Number of approximated MODERATE 2 2
amounts of urine
How many times incontinent 6
MODERATE amount urine
Number of unmeasured liquid
stools
Rectum 2
Vital Signs
Temp Pulse Resp BP Pulse Ox
98.3 F 92 18 126/67 97
10/21/23 08:00 10/21/23 08:00 10/21/23 08:00 10/21/23 08:00 10/21/23 08:00
Lab Results
10/21/23 04:49
10/21/23 04:49
Calcium 8.4 mg/dl (8.4-10.2) 10/21/23 04:49
Phosphorus 3.6 mg/dl (2.5-4.5) 10/20/23 09:36
Magnesium 1.8 mg/dl (1.6-2.3) 10/20/23 09:36
Total Bilirubin 0.4 mg/dl (0.2-1.3) 10/21/23 04:49
AST 20 U/L (14-36) 10/21/23 04:49
ALT 17 U/L (0-35) 10/21/23 04:49
Alkaline Phosphatase 66 U/L (38-126) 10/21/23 04:49
Total Protein 5.1 g/dl (6.3-8.2) L 10/21/23 04:49
Albumin 2.6 g/dl (3.5-5.0) L 10/21/23 04:49
Physical Exam
-
GENERAL/NEURO: Awake, Alert, no distress
CHEST: Unlabored breathing on RA
ABDOMEN: Soft, Non-Tender, Non-Distended, incision with aditi in place some periumbilical redness, some fluctuance and some bloody discharge.
--- NOTE | 2023-10-21 12:49 | CM ---
Addendum entered by Ange Ballard RN 10/21/23 16:10:
IMM signed and placed on the chart.
Original Note:
Reviewed the chart notes and spoke with the patient at the bedside. The patient's diet upgraded to low residual. Per patient, small area of incision open with dressing applied. Discuss discharge plans. Patient feels she would benefit from VN for
wound monitoring. Discussed are agencies. Patient selected VN. Referral sent via [facility]. continues to be available to patient/family and is monitoring medical plan for needs at discharge.
Plan: Discharge to home with VN services.
[2023-10-21 15:35] VITALS: BP 123/80
[2023-10-21] MEDS: FLUSH (NSS) 1 FLUSH IV (15:40)
[2023-10-21] MEDS: LOVENOX 40 MG SC (17:19)
[2023-10-21] MEDS: ZOLOFT 50 MG PO (21:08)
[2023-10-21] MEDS: BENADRYL 12.5 MG IV (21:19)
[2023-10-21 23:11] VITALS: BP 107/63
[2023-10-22] MEDS: ZOSYN 50 IV ×2 (01:45→09:23)
[2023-10-22] MEDS: TYLENOL 650 MG PO (02:35)
--- NOTE | 2023-10-22 07:40 | W.PN.GS2 ---
Addendum entered and electronically signed by Irvin Maloney MD 10/22/23 13:30:
WBC trending down. Feels good, no abdominal pain, no fevers tolerating diet. Plan for DC with follow-up in 1 week.
Original Note:
Today's Communication / Plan
-
-- LRD
-- F/u AM labs, if CBC trending down will DC today if trending up will repeat CT scan
-- Abx: Zosyn, sepsis present on presentation, plan for total of 14 days
Assessment / Plan
-
Patient is a 68 yo F POD#8 s/p exploratory laparotomy, small bowel resection with primary anastomosis, rigid sigmoidoscopy.
Expected ileus, resolving. Persistent leukocytosis reactive inflammation versus SSI
.-- LRD
-- F/u AM labs, if CBC trending down will DC today if trending up will repeat CT scan
-- Abx: Zosyn, sepsis present on presentation, plan for total of 14 days
-- Pain control: Tylenol, Toradol, PO Tramadol, Dilaudid for breakthrough
-- DVT ppx: Lovenox
-- GI ppx: Protonix
-- OOB/ambulate
-- OK to shower
Subjective Data
-
Date of Service: October 22, 2023
Major complaints. Feels better. Denies any abdominal pain. No nausea or vomiting. Tolerating a low residue diet. Passing flatus and positive bowel movements. Afebrile.
Objective Data
-
Intake and Output
10/21/23 10/22/23 10/23/23
06:59 06:59 06:59
Intake Total 1390 / 1390 1100 / 1100
Balance 1390 / 1390 1100 / 1100
Intake:
Oral fluids 1140 / 1140 900 / 900
IV fluids (Total) 50 / 50
IV piggybacks 200 / 200 200 / 200
Other:
Number of approximated MODERATE 2 2
amounts of urine
How many times incontinent 6
MODERATE amount urine
Number of unmeasured liquid
stools
Rectum 2
Vital Signs
Temp Pulse Resp BP Pulse Ox
98.4 F 88 16 107/63 93
10/21/23 23:11 10/21/23 23:11 10/21/23 23:11 10/21/23 23:11 10/21/23 23:11
Calcium 8.4 mg/dl (8.4-10.2) 10/21/23 04:49
Phosphorus 3.6 mg/dl (2.5-4.5) 10/20/23 09:36
Magnesium 1.8 mg/dl (1.6-2.3) 10/20/23 09:36
Total Bilirubin 0.4 mg/dl (0.2-1.3) 10/21/23 04:49
AST 20 U/L (14-36) 10/21/23 04:49
ALT 17 U/L (0-35) 10/21/23 04:49
Alkaline Phosphatase 66 U/L (38-126) 10/21/23 04:49
Total Protein 5.1 g/dl (6.3-8.2) L 10/21/23 04:49
Albumin 2.6 g/dl (3.5-5.0) L 10/21/23 04:49
Physical Exam
-
Gen: NAD
Abd: obese, soft, mild tenderness, ND, non-peritoneal, incision c/d/i - blood blister at umbilicus, no erythema, or drainage, no ecchymosis
[2023-10-22 07:55] LABS: Hematocrit 31.2 % (37.0-47.0); Hemoglobin 10.4 g/dL (12.0-16.0); Mean Corp Hgb Conc. 33.3 g/dL (33.0-37.0); Mean Corpuscular Hgb 29.5 pg (27.0-31.0); Mean Corpuscular Volume 88.4 fL (81.0-99.0); Platelet Count 343 10^3/uL (130-400); Red Blood Cell Count 3.53 10^6/uL (4.20-5.40); Red Cell Dist. Width 12.2 % (11.5-14.5); White Blood Cell Count 13.1 10^3/uL (4.8-10.8)
[2023-10-22 08:00] VITALS: BP 132/76
[2023-10-22 08:58] LABS: Blood Urea Nitrogen 5 mg/dl (7-17); Calcium 8.8 mg/dl (8.4-10.2); Carbon Dioxide 32 mmol/L (22-30); Chloride 101 mmol/L (98-107); Estimated Creatinine Clearance 96 ml/min; Glucose 96 mg/dl (70-99); Potassium 3.5 mmol/L (3.5-5.1); Sodium 140 mmol/L (135-145); eGFR > 60.00
[2023-10-22] MEDS: NSS (PRESERVATIVE FREE) 10 ML IV (09:23)
[2023-10-22] MEDS: PROTONIX IV 40 MG IV (09:23)
--- NOTE | 2023-10-22 13:59 | CM ---
Reviewed the chart notes and spoke with the patient at the bedside. The patient is being discharged to home today with VN services. The patient's son will provide transportation. CM continues to be available to patient/family and is monitoring
medical plan for needs at discharge.
Plan: Discharge to home with VN services.
[2023-10-22 14:18] VITALS: BP 149/75
[2023-10-22 14:49] VITALS: BP 149/75
--- NOTE | 2023-10-24 10:23 | W.DCSUMMARY ---
Discharge Summary
Discharge Data
Date of Admission: 10/14/23
Date of Discharge: 10/22/23
-
Pending Results: No
Hospital Course
Ms Donis is a 68 yo female who presented to the hospital with about 4 days of worsening abdominal pain with nausea, vomiting, fevers and chills. Evidence of small bowel perforation noted on CT imaging of the abdomen and pelvis in the Emergency
department consistent. She was, therefore, emergently taken to the operating room for exploratory laparotomy with small hole noted in the jejunum present. A small bowel resection was preformed of affected area with primary anastomosis. Sigmoidoscopy
was done with negative leak test. She tolerated the procedure well. She was initially maintained with an NGT while awaiting bowel recovery. Once passing flatus and stools, the NGT was removed and she was able to tolerate slow advancement of diet.
Pain was well managed prior to discharge. She was maintained on IV antibiotics throughout her course of stay and was discharged with an additional 5 days of oral antibiotics.
Discharge Plan
-
Patient Disposition: Home (Routine Discharge)
Discharge Diagnosis/Procedures: Perforated small bowel, exploratory laparotomy and small bowel resection with primary anastomosis
Condition: Good
Diet: Low Fiber
Activity: No strenuous activity
Additional Activity: No heavy lifting (>20 lbs) or strenuous activities for 4 to 6 weeks postoperatively
Driving Restrictions: No driving if too sore or taking narcotics
Bathing Restrictions: OK to Shower
Wound Care: Keep incision clean and dry. Cover with dry gauze as needed. Whit to be removed in the office.
Activity Restrictions/Additional Instructions:
Call for fevers (>100.5), nausea or vomiting, worsening abdominal pain
Referrals:
Irvin Maloney MD [Active] - in one week (Staple removal)
Mitzy Hurst MD [Family Provider] -
Prescriptions:
New
amoxicillin-pot clavulanate 875-125 mg tablet
1 tab PO Q12 7 Days Qty: 14 0RF
acetaminophen 325 mg tablet
650 mg PO Q4HPRN PRN (Reason: mild pain) Qty: 1 0RF
oxycodone 5 mg tablet
5 mg PO Q4HPRN PRN (Reason: breakthrough/severe pain) Qty: 10 0RF
Continued
meloxicam 15 mg Tablet
15 mg PO QPM
sertraline [Zoloft] 50 mg Tablet
50 mg PO QPM
rosuvastatin 5 mg Tablet
5 mg PO QPM
Discharge Orders:
Discharge Patient (As Directed); Ordered 10/22/23
Ordered By: Irvin Maloney
Discharge Date and Time
Discharge Date/Time: 10/22/23 16:00
Print Language: MACEDONIAN
== END 2023-10-22 16:00 | disposition home health service (06) | DRG 853 ==
LOC: 2 SOUTH 21:50
PROVIDERS: Emergency Medicine; Radiology Diagnostic Radiology; Registered Nurse; ADMITTING PHYSICIAN Surgery; EMERGENCY PHYSICIAN Emergency Medicine; FAMILY PHYSICIAN Family Medicine
PROC: 0DJD8ZZ Inspection of Lower Intestinal Tract, Via Natural or Artificial Opening Endoscopic (ICD-10-PCS; 2023-10-14)
PROC: 0D9670Z Drainage of Stomach with Drainage Device, Via Natural or Artificial Opening (ICD-10-PCS; 2023-10-14)
PROC: 0DTB0ZZ Resection of Ileum, Open Approach (ICD-10-PCS; 2023-10-14)
DX: A41.9 Sepsis, unspecified organism (principal); K63.1 Perforation of intestine (nontraumatic); Z68.41 Body mass index [BMI] 40.0-44.9, adult; K56.7 Ileus, unspecified; R19.7 Diarrhea, unspecified; E78.00 Pure hypercholesterolemia, unspecified; R00.0 Tachycardia, unspecified; M19.042 Primary osteoarthritis, left hand; M19.041 Primary osteoarthritis, right hand; E66.01 Morbid (severe) obesity due to excess calories; Z87.891 Personal history of nicotine dependence
CPT/HCPCS: 88307; 74018; 74177; 80048; 80053; 81003; 81015; 83605; 83735; 84100; 84484; 85025; 85027; 87086; 87502; 87811; 93005; 96361; 96365; 96375; 99291; Q9967

== ENCOUNTER → 2024-09-16 10:38 | Outpatient (REF) | payer MEDICARE, SELFPAY | LOC: HWWDC 10:38 | PROVIDERS: ATTENDING PHYSICIAN Family Medicine | DX: Z12.31 Encounter for screening mammogram for malignant neoplasm of breast (principal) | CPT/HCPCS: 77063; 77067 ==

== ENCOUNTER 2025-04-03 10:24 | Inpatient (IN) | payer MEDICARE, SELFPAY ==
[2025-04-03] VITALS (13 sets, daily range): BP systolic 104–142; BP diastolic 75–91; BMI 41.7; BMI 41.4
[2025-04-03 03:18] LABS: Hematocrit 47.4 % (37.0-47.0); Hemoglobin 16.2 g/dL (12.0-16.0); Mean Corp Hgb Conc. 34.2 g/dL (33.0-37.0); Mean Corpuscular Volume 85.9 fL (81.0-99.0); Nucleated Red Blood Cells % 0 %; Platelet Count 292 10^3/uL (130-400); Red Cell Dist. Width 12.0 % (11.5-14.5)
[2025-04-03 03:41] LABS: ALT (SGPT) 20 U/L (0-35); AST (SGOT) 22 U/L (14-36); Albumin 5.1 g/dl (3.5-5.0); Alkaline Phosphatase 73 U/L (38-126); Blood Urea Nitrogen 21 mg/dl (7-17); Calcium 10.3 mg/dl (8.4-10.2); Carbon Dioxide 27 mmol/L (22-30); Chloride 104 mmol/L (98-107); Glucose 177 mg/dl (70-99); Lipase 60 U/L (23-300); Potassium 3.8 mmol/L (3.5-5.1); Sodium 141 mmol/L (135-145); Total Protein 8.0 g/dl (6.3-8.2); eGFR > 60.00
[2025-04-03] MEDS: ZOFRAN 4 MG IV ×3 (04:04→21:38)
--- NOTE | 2025-04-03 06:13 | ED.GENMED ---
History of Present Illness
General
Chief Complaint: Abdominal Pain
Time Seen by Provider: 04/03/25 06:13
History of Present Illness
History of Present Illness:
FOCUSED PAST MEDICAL HISTORY
- Smoker, hyperlipidemia
REVIEW OF OLD RECORDS
- The patient was here in 2023 and at that time presented with small bowel perforation and was found to have small hole in the jejunum on ex lap. She had small bowel resection managed by Dr. Maloney.
Note:
CHIEF COMPLAINT(S)
Abdominal pain and vomiting.
HISTORY OF PRESENT ILLNESS
The patient is a 70-year-old female with a history of bowel perforation, presenting to the emergency department with complaints of abdominal pain and vomiting. Symptoms began approximately 12 hours before the arrival at around 8:00 PM. The patient
reported constipation for a couple of days and tried various treatments without relief, including a suppository and oral medication like polyethylene glycol. She experienced vomiting last night but not this morning, although nausea persisted until
antiemetic medication was administered. The patient describes mild tenderness upon palpation of the abdomen, with a slight firmness noted. She reported no fevers, and her vital signs upon examination revealed tachycardia with a heart rate in the
120s. The patients white blood cell count is 12, decreased from a previous count of 16 during her last visit for similar symptoms, but still elevated. The plan includes conducting a computed tomography (CT) scan of the abdomen to assess the
condition.
PAST MEDICAL AND SURGICAL HISTORY
- Previous bowel perforation (October 2023)
- Two sections
- Tubal ligation
PHYSICAL EXAM
General: Alert, appears fairly comfortable.
Skin: Warm, dry.
Head: Normocephalic, atraumatic.
Neck: Supple, trachea midline.
Eye, Ears, Nose, Mouth, and Throat: Oral mucosa moist.
Cardiovascular: Tachycardia noted with a heart rate in the 120s.
Respiratory: Respirations are non-labored.
Gastrointestinal: Mild diffuse tenderness and slight firmness upon abdominal palpation. Abdomen nondistended.
Back: Normal range of motion, Normal alignment.
Musculoskeletal: Normal range of motion, normal strength.
Neurological: Alert and oriented to person, place, time, and situation, No focal neurological deficit observed.
Psychiatric: Cooperative, appropriate mood & affect.
PROBLEM LIST
Acute Problems:
- Abdominal pain
- Vomiting
- Constipation
- Tachycardia
PLAN
- Conduct a CT scan of the abdomen to evaluate for possible bowel perforation and other abnormalities.
- Administer pain management as requested by the patient.
DIFFERENTIAL DIAGNOSIS
The Differential Diagnosis includes, in no particular order and is not limited to:
1. Bowel obstruction
2. Gastroenteritis
3. Diverticulitis
4. Bowel perforation
5. Mesenteric ischemia
6. Pancreatitis
7. Appendicitis
8. Constipation-related complications
9. Gastroesophageal reflux disease (GERD)
10. Peptic ulcer disease
RADIOLOGY
- CT abdomen pelvis obtained
EKG
- Sinus 125, nonspecific ST abnormality, of note on 10/14/2023 the patient was also tachycardic with rate of 128
LABS
- White count 12.6, hemoglobin 16.2, chemistry unremarkable
UPDATE
-SUMMARY OF ENCOUNTER
The patient, a 70-year-old female with a history of bowel perforation, presented to the emergency department with abdominal pain and vomiting. A CT scan of the abdomen was performed, which suggested a bowel obstruction but no perforation. The
patient experienced vomiting the previous night but not since midnight. She reported nausea despite antiemetic treatment. After discussing the possibility of an NG tube placement to decompress the bowel, it was decided to hold off unless the
patients condition worsened or the surgeon insisted on it. Admission to the hospital for further management was recommended.
DISPOSITION
Admit
ASSESSMENT
Suspected bowel obstruction leading to abdominal pain and nausea, likely due to postoperative adhesions.
PLAN
- Recommend hospital admission for continued monitoring and management.
- Keep the patient nil per os (NPO) to avoid exacerbating the obstruction.
- Consider NG tube placement if vomiting recurs or as advised by the surgical team.
- Initiate intravenous fluid therapy to maintain hydration.
- Continue monitoring for signs of bowel perforation or worsening of the obstruction.
INDEPENDENT REVIEW OF LABS AND INTERPRETATION OF TESTS
- My independent review of the CT scan indicates a suspected bowel obstruction, with distension of the intestines but no evidence of perforation.
MANAGEMENT OF THE PATIENTS CARE WAS DISCUSSED WITH
Plan to discuss with the surgical team for further evaluation and guidance on the potential need for an NG tube.
MEDICATION RECONCILIATION
- Antiemetic medication was administered for nausea management.
- Pain management previously administered�Dilaudid
MEDICAL DECISION MAKING
- Chronic conditions affecting care include a history of bowel perforation and prior abdominal surgeries. Differential diagnosis includes bowel obstruction, gastrointestinal adhesions, and constipation-related complications.
- Complexity of Data Reviewed: Independent review and interpretation of the CT scan to assess for obstruction or perforation.
- Discussion of management with other healthcare providers: Plan to involve surgical team for further input on management and potential need for NG tube placement.
- Consideration of Admission/Observation: Escalation of care including admission was considered necessary given the complexity and risk associated with a potential bowel obstruction. The patient requires close monitoring and further evaluation to
ensure stability and prevent complications.
DIAGNOSIS
Small bowel obstruction
I notified general surgery on-call, Dr. Klein.
Past History
Past History
ED Past Medical History: Hypercholesterolemia
ED Past Surgical History: and Orthopedic
Phy Exam
Physical Exam
Physical Exam:
See HPI
Course
Orders/Labs/Results
Orders:
Orders
04/03/25 02:51
IV Insert/Care/Rem.- Treatment PRN
Straight cath- Treatment ONCE
Urinalysis Reflex To Culture Urgent
Date Specimen was Collected: 04/03/25
Time Specimen was Collected: 02:51
04/03/25 03:10
Complete Blood Count/With Diff Urgent
Comprehensive Metabolic Panel Urgent
Lipase Urgent
04/03/25 04:01
Ondansetron Injectable [Zofran] 8 mg .ROUTE .STK-MED ONE
04/03/25 04:04
Ondansetron Injectable [Zofran] 4 mg IV NOW STA
04/03/25 06:16
CT Abd/pelvis W Iv Cont Urgent
Comment:
Reason For Exam: Abdominal pain, history of jejunal perforation
04/03/25 06:24
0.9% Sodium Chloride 1000 ml [Nss] 1,000 ml IV BOLUS
HYDROmorphone [Dilaudid] 1 mg IV NOW STA
04/03/25 06:35
Electrocardiogram (*1) Urgent
Reason for Study: Tachycardia
EKG- Treatment ONCE
Abnormal Lab Results
04/03/25
03:10
WBC 12.6 H 10^3/uL
(4.8-10.8)
RBC 5.52 H 10^6/uL
(4.20-5.40)
Hgb 16.2 H g/dL
(12.0-16.0)
Hct 47.4 H %
(37.0-47.0)
Absolute Neuts (auto) 10.7 H 10^3/uL
(1.4-6.5)
Absolute Lymphs (auto) 0.9 L 10^3/uL
(1.2-3.4)
Absolute Monos (auto) 0.9 H 10^3/uL
(0.1-0.6)
Neutrophils % 85.2 H %
(42.2-75.2)
Lymphocytes % 7.1 L %
(20.5-51.1)
BUN 21 H mg/dl
(7-17)
Creatinine 0.5 L mg/dL
(0.6-1.0)
Glucose 177 H mg/dl
(70-99)
Calcium 10.3 H mg/dl
(8.4-10.2)
Albumin 5.1 H g/dl
(3.5-5.0)
04/03/25 03:10
04/03/25 03:10
Vital Signs
Initial and Last Documented VS:
Initial Vital Signs
Temp Pulse Resp BP Pulse Ox
36.4 C 124 20 140/88 94
04/03/25 02:36 04/03/25 02:36 04/03/25 02:36 04/03/25 02:36 04/03/25 02:36
Last Documented Vital Signs
Temp Pulse Resp BP Pulse Ox
37.4 C 119 16 119/77 97
04/03/25 07:30 04/03/25 07:45 04/03/25 07:45 04/03/25 07:06 04/03/25 07:45
*Pulse Oximetry
SaO2: 92
Oxygen Mode of Delivery: Room air
Patient hypoxic: no
*Critical Care Note
Total Time (30-74mins, 75-104mins- exclusive of procedures): Not Applicable
ED Attending Note
-
Portions of this chart may have been created with voice recognition software.� Occasional wrong word or��sound alike� substitutions may have occurred due to the inherent limitations of voice recognition software.
Discharge Plan
Departure
Patient Disposition: Admit
Date of Disposition: 04/03/25
Time of Disposition: 08:51
Presentation/result/management discussed w/ accepting MD/DO: Hospitalist
Discharge Problem:
SBO (small bowel obstruction)
Prescriptions:
No Action
meloxicam 15 mg Tablet
15 mg PO QPM
sertraline [Zoloft] 50 mg Tablet
50 mg PO QPM
rosuvastatin 5 mg Tablet
5 mg PO QPM
amoxicillin-pot clavulanate 875-125 mg tablet
1 tab PO Q12 7 Days Qty: 14 0RF
acetaminophen 325 mg tablet
650 mg PO Q4HPRN PRN (Reason: mild pain) Qty: 1 0RF
oxycodone 5 mg tablet
5 mg PO Q4HPRN PRN (Reason: breakthrough/severe pain) Qty: 10 0RF
Referrals:
Mitzy Hurst MD [Family Provider, Family Practice]
Interventions
Interventions:
*Risk Screen - Suicide Last Done: 04/03/25 02:36
*General Assessment Last Done: 04/03/25 02:36
*Neglect/Abuse Screening Last Done: 04/03/25 02:36
*ED- Fall Risk Assessment Last Done: 04/03/25 02:36
*ED COVID-19 Vaccine History Last Done: 04/03/25 02:36
*ED Influenza Vaccine History Last Done: 04/03/25 02:36
WK-Fkynjs-Fmrrhewszx Assessment Last Done: 04/03/25 04:39
Discharge Date and Time
Print Language: SETSWANA
[2025-04-03] MEDS: DILAUDID 1 MG IV (06:58)
[2025-04-03] MEDS: NSS 1000 IV (06:58)
--- NOTE | 2025-04-03 10:14 | HPS.HSE ---
Family Physician
-
Family Physician: Mitzy Hurst MD
Chief Complaint
-
abdominal pain
History of Present Illness
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
non-radiating abdominal pain for 1 day. Notced absent gas for [address] showed SBO. No fevers no chills at home
Medical History
Past Medical History
Past Medical History: Reports Other
Additional Past Medical History:
See HPI
Past Surgical History: Reports Other
Additional Past Surgical History:
Se HPI
Social History
Tobacco: Non-smoker
Alcohol: Occasional
Drug: None
Family History
Family History: Not pertinent
Allergies / Home Medications
Allergies reflects when Allergies were last updated in [facility].
Home Medications with original date entered in [employer] [facility]
Allergy/Medication List:
Allergies
Allergy/AdvReac Type Severity Reaction Status Date / Time
No Known Allergies Allergy Verified 04/03/25 02:35
Home Medications - not updated yet
meloxicam 15 mg tablet 15 mg PO QPM Pain 10/14/23
rosuvastatin 5 mg tablet 5 mg PO QPM High Cholesterol 10/14/23
sertraline 50 mg tablet (Zoloft) 50 mg PO QPM Depression 10/14/23
acetaminophen 325 mg tablet 650 mg (2 x 325 mg) PO Q4HPRN PRN mild pain #1 tab 10/22/23
amoxicillin 875 mg-potassium clavulanate 125 mg tablet 1 tab PO Q12 antibiotic 7 days #14 tabs 10/22/23
oxycodone 5 mg tablet 5 mg PO Q4HPRN PRN breakthrough/severe pain #10 tabs 10/22/23
Review of Systems
-
History Source: Patient
A 12 point ROS was completed and negative except as noted: Yes
: Reports See HPI
Physical Exam
Vital Signs
Vital Signs
Temp Pulse Resp BP Pulse Ox
99.4 F 119 16 119/77 97
04/03/25 07:30 04/03/25 07:45 04/03/25 07:45 04/03/25 07:06 04/03/25 07:45
Physical Exam
General: No Apparent Distress, Comfortable, Conversant and Morbidly Obese
HEENT: NormoCephalic, Anicteric and Moist mucous membranes
Respiratory: Clear; No Wheezes or Crackles
Cardiac: S1/S2, Regular Rhythm and Tachycardia
GI: Soft, Tender and Distended
Genito-urinary: No costovertebral tender
Musculoskeletal: No Clubbing, No Cyanosis and No Edema
Skin: Warm; No Dry or Jaundice
Neuro: Awake, Alert, Oriented, AO x 3 and No Motor Deficits
Psych: Calm
Laboratory Results
-
04/03/25 03:10
04/03/25 03:10
Laboratory Results
Total Bilirubin 0.7 mg/dl (0.2-1.3) 04/03/25 03:10
AST 22 U/L (14-36) 04/03/25 03:10
ALT 20 U/L (0-35) 04/03/25 03:10
Alkaline Phosphatase 73 U/L (38-126) 04/03/25 03:10
Lipase 60 U/L (23-300) 04/03/25 03:10
Data Reviewed
-
CT Scan: Report Reviewed by me
Lab Data: Labs Reviewed by me
Impression/Plan
-
A/P:
#SBO most liekly 2/2 adhesions
NG to low intermittent sucction
NPO
Pain meds
GeSx consult
follow and correct electrolytes, check TSH
#Mild hypercalcemia
2/2 vomiting and dehydration
IVF
#Mild leukocytosis
most liekly 2/2 acute disease
follow CBC
#Mild sinus tachy
2/2 pain and dehydration
telemetry
#Anxiety
#HLD
hold meds, restart when able to take PO
#Small umbilical hernia containing knuckle of large bowel
nonobstructed
#Mild pericardial thickening
Echo
#Diverticulosis w/o diverticulitis
eventual high fiber diet
#Morbid obesity
BMI 41.7
advised to decrease calorie intake
DVT ppx hep
Full code
I have spent at least 77min reviewign chart, test results, communication with consultants and providing direct patient care
[2025-04-03 11:32] LABS: C-Reactive Protein 7.70 mg/L (0.0-10.00)
--- NOTE | 2025-04-03 11:34 | EDCM ---
CM reviewed chart and met with pt bedside in ED. Pt lives alone in 1 story home, 1 [address]. Pt states address is [address] in [place], [facility] is mailing address.
Independent in ADLs, personal care and ambulation at baseline. Uses cane in home and walker outside the home.
Confirms prescription coverage.
Hx [facility], no hx SNF
PCP: Mitzy Hurst
Pharmacy: [facility]
CM will continue to follow for all discharge planning needs.
[2025-04-03] MEDS: D5LR 1000 IV ×2 (11:36→21:41)
[2025-04-03] MEDS: MORPHINE SULFATE 1 MG IV (11:37)
--- NOTE | 2025-04-03 12:35 | CON.GS ---
Consultation
-
Date/Time Consultation Performed: 04/03/25 1140
Medical History
-
Chief Complaint: abdominal pain
History of Present Illness:
ms Donis is a 70 yo female with a h/o x2, tubal ligation and ex lap for SBR for a perforated jejunum (09/2023) who presents with vomiting and abdominal pain since yesterday after she ate a large salad. An NGT was placed in the ED with
some improvement in symptoms but still with noted mild nausea. Her abdomen is distended with a periumbilical hernia present which is soft/reducible. She notes that she had not passed flatus for several days prior to arrival but was able to pass a
small amount of flatus just prior to exam. She denies fevers or chills.
Past Medical History
Past Medical History: Hypercholesterolemia and Other (morbid obesity)
Past Surgical History: Bowel Resection (ex lap with SBR for jejunal perforation 09/2023 ([facility])), (x2) and Gynecological (tubal ligation)
Social History
Tobacco: Former Smoker
Alcohol: Occasional
Family History
Family History: Reviewed & Not Pertinent
Allergies / Home Medications
Allergy/AdvReac Type Severity Reaction Status Date / Time
No Known Allergies Allergy Verified 04/03/25 02:35
�Medication �Instructions �Recorded �Confirmed �Type
meloxicam 15 mg tablet 15 mg PO QPM Pain 10/14/23 10/14/23 History
rosuvastatin 5 mg tablet 5 mg PO QPM High Cholesterol 10/14/23 10/14/23 History
sertraline 50 mg tablet (Zoloft) 50 mg PO QPM Depression 10/14/23 10/14/23 History
acetaminophen 325 mg tablet 650 mg (2 x 325 mg) PO Q4HPRN PRN 10/22/23 Rx
mild pain #1 tab
amoxicillin 875 mg-potassium 1 tab PO Q12 antibiotic 7 days #14 10/22/23 Rx
clavulanate 125 mg tablet tabs
oxycodone 5 mg tablet 5 mg PO Q4HPRN PRN 10/22/23 Rx
breakthrough/severe pain #10 tabs
Review of Systems
-
History Source: Patient and Family
All other systems: Negative unless noted
A 10 point review of systems was completed, and was negative except as per HPI.
Physical Exam
Vital Signs
Temp Pulse Resp BP Pulse Ox
98.9 F 105 15 129/81 95
04/03/25 12:23 04/03/25 12:09 04/03/25 12:09 04/03/25 11:00 04/03/25 12:25
04/02/25 04/03/25 04/04/25
06:59 06:59 06:59
Actual Weight 100 kg
Body Mass Index (BMI) 41.7
Lab Results
04/03/25 03:10
04/03/25 03:10
WBC 12.6 10^3/uL (4.8-10.8) H 04/03/25 03:10
Hgb 16.2 g/dL (12.0-16.0) H 04/03/25 03:10
Hct 47.4 % (37.0-47.0) H 04/03/25 03:10
Plt Count 292 10^3/uL (130-400) 04/03/25 03:10
Abs Immat Gran (auto) 0.0 10^3/uL (0-0.05) 04/03/25 03:10
Neutrophils % 85.2 % (42.2-75.2) H 04/03/25 03:10
Physical Exam
General: Well Developed and Well Nourished
HEENT: Normocephalic and Moist Mucous Membranes
GI: Soft, Non Tender, Distended and Other (periumbilical hernia, soft reducible)
Skin: Warm and Dry
Neuro: Awake, Alert and AO x 3
Psych: Calm
Data Reviewed
-
CT Scan: Image Personally Visualized and interpreted, Report Reviewed by me, Discussed with Physician, Discussed with Patient and Discussed with Family
Labs: Labs Reviewed by me, Discussed with Physician, Discussed with Patient and Discussed with Family
Old Records: Reviewed
Assessment / Plan
-
70 yo female with a h/o x2, tubal ligation and ex lap for SBR for a perforated jejunum (09/2023) who presents with vomiting and abdominal pain since yesterday after she ate a large salad. An NGT was placed in the ED with some improvement in
symptoms. CT imaging reviewed with concern for partial adhesive bowel obstruction. Umbilical hernia containing large bowel, uninvolved in current obstruction. No evidence of bowel threat or compromise. Afebrile. VSS. Mild leukocytosis. Elevated h/h.
High BUN/CR ratio consistent with mild dehydration.
Plan:
Continue NGT for decompression
NPO with ice chips for comfort
Analgesics/antiemetics as needed
If no improvement, will plan PO contrast study but hold off on for now
No plans for emergent surgery, will follow for improvement with decompression, bowel rest and supportive measures.
[2025-04-03] MEDS: ZOLOFT PO (17:06)
[2025-04-03] MEDS: HEPARIN 5000 UNITS SC ×2 (17:19→23:45)
--- NOTE | 2025-04-03 18:12 | PTCARENOTE ---
Called verbal report to receiving RN, Domi, on . RN's agreed that is patient is not up to floor by [id number], Domi will give report to oncoming night RN
--- NOTE | 2025-04-03 20:00 | PTCARENOTE ---
Pt. admitted with SBO and arrived via stretcher from ED with NGT to Dhaval martinez. Pt. walked to bed with x1 assist. NGT hooked up to LIWS with green/brown drainage noted. Pt. tolerating tube with complaint of mild discomfort. Pt. made aware of NPO status.
Pt. oriented to room and call [place] within reach.
[2025-04-03] MEDS: D5LR IV ×2 (20:14→21:39)
[2025-04-03] MEDS: ZOFRAN IV (20:17)
[2025-04-03] MEDS: OFIRMEV 100 IV (22:00)
[2025-04-04 03:30] VITALS: BP 137/82
[2025-04-04 03:34] LABS: Urine Character Clear (Clear)
[2025-04-04] MEDS: OFIRMEV 100 IV ×3 (04:18→17:01)
[2025-04-04 05:00] LABS: Urine Red Blood Cell 0-2 /HPF (0-2)
[2025-04-04 07:27] LABS: Hematocrit 39.0 % (37.0-47.0); Hemoglobin 12.6 g/dL (12.0-16.0); Mean Corp Hgb Conc. 32.3 g/dL (33.0-37.0); Mean Corpuscular Volume 93.3 fL (81.0-99.0); Nucleated Red Blood Cells % 0 %; Platelet Count 248 10^3/uL (130-400); Red Cell Dist. Width 12.3 % (11.5-14.5)
[2025-04-04 07:35] VITALS: BP 137/81
[2025-04-04 07:36] LABS: ALT (SGPT) 17 U/L (0-35); AST (SGOT) 20 U/L (14-36); Albumin 3.4 g/dl (3.5-5.0); Alkaline Phosphatase 50 U/L (38-126); Blood Urea Nitrogen 11 mg/dl (7-17); Calcium 8.6 mg/dl (8.4-10.2); Carbon Dioxide 33 mmol/L (22-30); Chloride 105 mmol/L (98-107); Estimated Creatinine Clearance 93 ml/min; Glucose 111 mg/dl (70-99); Magnesium 1.9 mg/dl (1.6-2.3); Potassium 3.9 mmol/L (3.5-5.1); Sodium 139 mmol/L (135-145); Total Protein 5.8 g/dl (6.3-8.2); eGFR > 60.00
[2025-04-04] MEDS: PROTONIX IV 40 MG IV ×2 (09:11→20:55)
[2025-04-04] MEDS: NSS (PRESERVATIVE FREE) 10 ML IV ×2 (09:11→20:56)
--- NOTE | 2025-04-04 09:11 | W.PN.HOSP.TC ---
Today's Communication/Plan
-
Improving
cont IVF
follow GenSx
PPI BID
follow CBC
Assessment / Plan
Assessment / Plan
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
non-radiating abdominal pain for 1 day. Noticed absent gas for [address] showed SBO. Improving
Accidental mild pericardial thickening on CT
A/P:
#SBO most liekly 2/2 adhesions
NG to low intermittent sucction
NPO
Pain meds
GeSx consult
follow and correct electrolytes
TSH WNL
#Mild hypercalcemia
resolved
2/2 vomiting and dehydration
IVF
#Mild leukocytosis
most liekly 2/2 acute disease
resolved
#Mild sinus tachy with sinus arrhythmia
2/2 pain and dehydration
resolved
telemetry without clinically significant arrhythmia - can be discontinued
#Anxiety
#HLD
hold meds, restart when able to take PO
#Small umbilical hernia containing knuckle of large bowel
nonobstructed
#Mild pericardial thickening
No checst pain
Echo
#Diverticulosis w/o diverticulitis
eventual high fiber diet
#Morbid obesity
BMI 41.7
advised to decrease calorie intake
#GERD
dark NG output, concern for NG tube trauma
start PPI BID
folow H&H
DVT ppx hep
Full code
I have spent at least 51min reviewign chart, test results, communication with consultants and providing direct patient care
Anticipated Discharge: > 48 hours
Subjective/Interval History
-
Date of Service: April 04, 2025
Objective Data
-
Labs:
Laboratory Results
04/04/25
05:55
WBC 7.6
Hgb 12.6 D
Hct 39.0
Plt Count 248
Sodium 139
Potassium 3.9
Chloride 105
Carbon Dioxide 33 H
BUN 11
Creatinine 0.5 L
Glucose 111 H
Calcium 8.6 D
Total Bilirubin 0.7
AST 20
ALT 17
Alkaline Phosphatase 50
Vital Signs:
Vital Signs
Temp Pulse Resp BP Pulse Ox
98.5 F 93 16 137/81 94
04/04/25 07:35 04/04/25 07:35 04/04/25 07:35 04/04/25 07:35 04/04/25 07:35
I&O
04/03/25 04/04/25 04/05/25
06:59 06:59 06:59
Intake Total 1390 / 1390
Output Total 425 / 425
Balance 965 / 965
Review of Systems
-
History Source: Patient
All other systems: Reviewed and negative
Physical Exam
-
General: No Apparent Distress
HEENT: Normocephalic
Respiratory: Clear to Auscultation
Cardiac: Regular Rhythm
GI: Soft, Nontender and Nondistended
Neuro: Awake, Alert, Oriented and AO x 3
Psych: Calm
[2025-04-04] MEDS: HEPARIN 5000 UNITS SC ×3 (09:12→23:52)
--- NOTE | 2025-04-04 12:00 | W.PN.GS2 ---
Addendum entered and electronically signed by YADIRA Greene 04/04/25 12:54:
correction, will advance NGT by 5cm to 65cm
Addendum entered and electronically signed by YADIRA Greene 04/04/25 12:51:
Reviewed XRay, will continue with NGT decompression. Advance NGT from 60cm at the nare to 55cm at the nare.
Original Note:
Today's Communication / Plan
-
xr today
Assessment / Plan
-
70 yo female with a h/o x2, tubal ligation and ex lap for SBR for a perforated jejunum (09/2023) who presented with vomiting and abdominal pain after eating a large salad. CT imaging reviewed with concern for partial adhesive bowel
obstruction. Umbilical hernia containing large bowel, uninvolved in current obstruction. No evidence of bowel threat or compromise. Improving with NGT in place.
Afebrile. VSS. No further leukocytosis.
Symptomatic improvement
Plan:
Continue NGT for decompression for now
NPO with ice chips for comfort
Check XR for further eval, may be able to remain NGT based on findings
Analgesics/antiemetics as needed
No plans for emergent surgery, will follow for improvement with decompression, bowel rest and supportive measures.
Subjective Data
-
Date of Service: April 04, 2025
Pt seen and examined at bedside with Dr. Klein. Denies n/v. OOB to chair. Reports distention improved. Passing more flatus today. Denies pain.
Objective Data
-
Intake and Output
04/03/25 04/04/25 04/05/25
06:59 06:59 06:59
Intake Total 1390 / 1390
Output Total 425 / 425
Balance 965 / 965
Intake:
Oral fluids 0 / 0
IV fluids (Total) 1130 / 1130
IV piggybacks 200 / 200
Amount instilled into GI Tube ( 60 / 60
Total)
Guadalupe Sump 60 / 60
Output:
Gastrointestinal tube output ( /
Total)
Guadalupe Sump /
Other:
Number of approximated MODERATE 1
amounts of urine
Vital Signs
Temp Pulse Resp BP Pulse Ox
98.5 F 93 16 137/81 94
04/04/25 07:35 04/04/25 07:35 04/04/25 07:35 04/04/25 07:35 04/04/25 07:35
Lab Results
04/04/25 05:55
04/04/25 05:55
Calcium 8.6 mg/dl (8.4-10.2) D 04/04/25 05:55
Magnesium 1.9 mg/dl (1.6-2.3) 04/04/25 05:55
Total Bilirubin 0.7 mg/dl (0.2-1.3) 04/04/25 05:55
AST 20 U/L (14-36) 04/04/25 05:55
ALT 17 U/L (0-35) 04/04/25 05:55
Alkaline Phosphatase 50 U/L (38-126) 04/04/25 05:55
Total Protein 5.8 g/dl (6.3-8.2) L D 04/04/25 05:55
Albumin 3.4 g/dl (3.5-5.0) L D 04/04/25 05:55
Physical Exam
-
Gen: NAD
Abd: obese, soft, no tenderness, mild distention
NGT with dark outputs
[2025-04-04] MEDS: D5LR 1000 IV (12:01)
--- NOTE | 2025-04-04 14:14 | PTCARENOTE ---
per CXR NGT needed advancement by 5cm per EMPLOYMENT CONSULTANT Katlyn Nicholson, for proper placement. tube advanced with out issue. pt walked hallway with daughter
[2025-04-04 15:12] VITALS: BP 145/88
[2025-04-04] MEDS: ZOLOFT 50 MG PO (17:03)
[2025-04-04] MEDS: ZOFRAN 4 MG IV (17:04)
[2025-04-04] MEDS: DILAUDID 0.5 MG IV ×2 (17:18→20:55)
[2025-04-04 23:32] VITALS: BP 164/88
[2025-04-05] MEDS: D5LR 1000 IV ×2 (00:59→22:53)
[2025-04-05] MEDS: BENADRYL 25 MG IV ×2 (02:03→22:53)
[2025-04-05 06:27] VITALS: BP 154/85
[2025-04-05 06:27] LABS: Hematocrit 40.0 % (37.0-47.0); Hemoglobin 13.1 g/dL (12.0-16.0); Mean Corp Hgb Conc. 32.8 g/dL (33.0-37.0); Mean Corpuscular Volume 91.7 fL (81.0-99.0); Nucleated Red Blood Cells % 0 %; Platelet Count 265 10^3/uL (130-400); Red Cell Dist. Width 11.9 % (11.5-14.5)
[2025-04-05 06:47] LABS: Blood Urea Nitrogen 7 mg/dl (7-17); Calcium 9.2 mg/dl (8.4-10.2); Carbon Dioxide 35 mmol/L (22-30); Chloride 100 mmol/L (98-107); Estimated Creatinine Clearance 93 ml/min; Glucose 111 mg/dl (70-99); Magnesium 1.8 mg/dl (1.6-2.3); Potassium 4.0 mmol/L (3.5-5.1); Sodium 138 mmol/L (135-145); eGFR > 60.00
--- NOTE | 2025-04-05 07:09 | W.PN.HOSP.TC ---
Today's Communication/Plan
-
SBFT per surgery
continue ivf while npo
Labs in Am
Assessment / Plan
Assessment / Plan
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
non-radiating abdominal pain for 1 day. Noticed absent gas for [address] showed SBO. Improving
Accidental mild pericardial thickening on CT
# SBO most liekly 2/2 adhesions
-Maintain NG tube for now
-NPO ; continue IVF
-IV Protonix 40 mg every 12H
-Appreciate surgery input; SBFT per surgery
#Mild hypercalcemia
-resolved
-2/2 vomiting and dehydration
#Mild leukocytosis
-most liekly 2/2 acute disease
-resolved
#Mild sinus tachy with sinus arrhythmia
2/2 pain and dehydration
-resolved
-telemetry without clinically significant arrhythmia
#Anxiety
#HLD
hold meds, restart when able to take PO
#Small umbilical hernia containing knuckle of large bowel
-nonobstructed
#Mild pericardial thickening
No checst pain
Echo
#Diverticulosis w/o diverticulitis
-eventual high fiber diet
#Morbid obesity
-BMI 41.7
-advised to decrease calorie intake
#GERD
-dark NG output
-PPI BID
- cbc in AM
DVT ppx hep
Full code
Anticipated Discharge: 24 - 48 hours
Subjective/Interval History
-
Date of Service: April 05, 2025
Reports that she is feeling better. Offers no new complaints. Passing flatus.
Objective Data
-
Labs:
Laboratory Results
04/05/25
05:51
WBC 6.8
Hgb 13.1
Hct 40.0
Plt Count 265
Sodium 138
Potassium 4.0
Chloride 100
Carbon Dioxide 35 H
BUN 7
Creatinine 0.5 L
Glucose 111 H
Calcium 9.2
Vital Signs:
Vital Signs
Temp Pulse Resp BP Pulse Ox
99.6 F 93 14 154/85 92
04/05/25 06:27 04/05/25 06:27 04/04/25 23:32 04/05/25 06:27 04/04/25 23:32
I&O
04/04/25 04/05/25 04/06/25
06:59 06:59 06:59
Intake Total 1390 / 1390 2045 / 2045
Output Total 425 / 425 990 / 990
Balance 965 / 965 1055 / 1055
Review of Systems
-
History Source: Patient
All other systems: Reviewed and negative (Unless documented)
Abdomen/GI: Reports Abdominal Pain (Mild) and Constipated
Physical Exam
-
General: Well Nourished, No Apparent Distress and Obese
HEENT: Normocephalic
Respiratory: Clear to Auscultation
Cardiac: Regular Rhythm
GI: Soft, Nontender, Nondistended and Other (Decreased bowel sound)
Neuro: Awake, Alert, Oriented and AO x 3
Psych: Calm
Data Reviewed
-
Diagnostic Radiology: Report Reviewed by me
CT Scan: Report Reviewed by me
Labs: Labs Reviewed by me, Discussed with Physician and Discussed with Patient
[2025-04-05 07:30] VITALS: BP 159/89
[2025-04-05] MEDS: HEPARIN 5000 UNITS SC ×3 (07:44→23:04)
[2025-04-05] MEDS: PROTONIX IV 40 MG IV ×2 (08:36→20:42)
[2025-04-05] MEDS: NSS (PRESERVATIVE FREE) 10 ML IV ×2 (08:36→20:42)
[2025-04-05] MEDS: OCEAN, SALINE MIST 2 SPRAYS NASAL (08:36)
[2025-04-05] MEDS: OFIRMEV 100 IV (08:37)
--- NOTE | 2025-04-05 10:15 | W.PN.GS2 ---
Addendum entered and electronically signed by Luis Carlos Valentin MD 04/05/25 10:58:
I saw and examined the patient independently.
The Caramel Candy Maker's note was reviewed and I agree with the note, assessment and plan except where noted below.
Comment: This is a 70-year-old female with multiple prior abdominal surgeries who presents with abdominal pain, nausea vomiting. CT reviewed concerning for adhesive small bowel obstruction. Some flatus but still high output from the NG tube with
light bilious drainage.
Will plan for a small bowel follow-through today. Repeat x-ray tomorrow.
Continue NG tube, n.p.o., IV fluids.
Original Note:
Today's Communication / Plan
-
SBFT study
Assessment / Plan
-
70 yo female with a h/o x2, tubal ligation and ex lap for SBR for a perforated jejunum (09/2023) who presented with vomiting and abdominal pain after eating a large salad. CT imaging reviewed with concern for partial adhesive bowel
obstruction. Umbilical hernia containing large bowel, uninvolved in current obstruction. No evidence of bowel threat or compromise.
Afebrile. VSS. No further leukocytosis.
Symptomatic improvement with NGT
Still with bilious drainage although continues to pass flatus
Plan:
Continue NGT for decompression for now
NPO with ice chips for comfort
SBFT study today
Continue IVF
Analgesics/antiemetics as needed
Subjective Data
-
Date of Service: April 05, 2025
Pt seen and examined at bedside with Dr. Valentin. Remains quite bloated but notes she does feel overall better. Passing flatus. No bm's. Denies n/v.
Objective Data
-
Intake and Output
04/04/25 04/05/25 04/06/25
06:59 06:59 06:59
Intake Total 1390 / 1390 2044 100 / 100
Output Total 425 / 425 990 / 990 100 / 100
Balance 965 / 965 1055 / 1055 0 / 0
Intake:
Oral fluids 0 / 0
IV fluids (Total) 1130 / 1130 1725 / 1725
IV piggybacks 200 / 200 200 / 200 100 / 100
Amount instilled into GI Tube ( 60 / 60 120 / 120
Total)
Dade Sump 60 / 60 120 / 120
Output:
Gastrointestinal tube output ( 425 / 425 990 / 990 100 / 100
Total)
Dade Sump 425 / 425 990 / 990 100 / 100
Other:
Number of approximated MODERATE 1 3 1
amounts of urine
Number of approximated LARGE 1
amounts of urine
Vital Signs
Temp Pulse Resp BP Pulse Ox
98.6 F 107 18 159/89 96
04/05/25 07:30 04/05/25 07:30 04/05/25 07:30 04/05/25 07:30 04/05/25 09:54
Lab Results
04/05/25 05:51
04/05/25 05:51
Calcium 9.2 mg/dl (8.4-10.2) 04/05/25 05:51
Magnesium 1.8 mg/dl (1.6-2.3) 04/05/25 05:51
Total Bilirubin 0.7 mg/dl (0.2-1.3) 04/04/25 05:55
AST 20 U/L (14-36) 04/04/25 05:55
ALT 17 U/L (0-35) 04/04/25 05:55
Alkaline Phosphatase 50 U/L (38-126) 04/04/25 05:55
Total Protein 5.8 g/dl (6.3-8.2) L D 04/04/25 05:55
Albumin 3.4 g/dl (3.5-5.0) L D 04/04/25 05:55
Physical Exam
-
Gen: NAD
Abd: obese, soft, no tenderness, mild to mod distention without much tympany
NGT with bilious outputs
--- NOTE | 2025-04-05 10:42 | CM ---
Reviewed the chart notes and spoke with the patient at the bedside. NGT continues. Diet remains NPO. CM continues to be available to patient/family and is monitoring medical plan for needs at discharge.
Plan: Discharge plans will depend on the patient's progress.
[2025-04-05 13:45] VITALS: BP 147/88
[2025-04-05 15:20] VITALS: BP 133/93
[2025-04-05] MEDS: ZOLOFT 50 MG PO (17:11)
[2025-04-05 19:10] VITALS: BP 159/96
[2025-04-05] MEDS: ZOFRAN 4 MG IV (22:59)
[2025-04-05 23:15] VITALS: BP 140/95
[2025-04-06 03:10] VITALS: BP 141/88
[2025-04-06] MEDS: TYLENOL 650 MG PO ×2 (03:48→22:26)
[2025-04-06 07:54] LABS: Hematocrit 36.9 % (37.0-47.0); Hemoglobin 12.7 g/dL (12.0-16.0); Mean Corp Hgb Conc. 34.4 g/dL (33.0-37.0); Mean Corpuscular Volume 88.1 fL (81.0-99.0); Nucleated Red Blood Cells % 0 %; Platelet Count 246 10^3/uL (130-400); Red Cell Dist. Width 11.8 % (11.5-14.5)
[2025-04-06 08:10] LABS: Blood Urea Nitrogen 5 mg/dl (7-17); Calcium 8.9 mg/dl (8.4-10.2); Carbon Dioxide 35 mmol/L (22-30); Chloride 102 mmol/L (98-107); Estimated Creatinine Clearance 93 ml/min; Glucose 91 mg/dl (70-99); Magnesium 1.7 mg/dl (1.6-2.3); Potassium 3.5 mmol/L (3.5-5.1); Sodium 137 mmol/L (135-145); eGFR > 60.00
[2025-04-06 08:14] VITALS: BP 145/85
[2025-04-06] MEDS: HEPARIN 5000 UNITS SC ×3 (08:58→22:27)
[2025-04-06] MEDS: NSS (PRESERVATIVE FREE) 10 ML IV ×2 (08:59→20:13)
[2025-04-06] MEDS: PROTONIX IV 40 MG IV ×2 (08:59→20:13)
--- NOTE | 2025-04-06 10:50 | W.PN.GS2 ---
Today's Communication / Plan
-
-- Clears
Assessment / Plan
-
Patient is a 70 yo F p/w SBO likely secondary to adhesions and dietary indiscretion
CT imaging reviewed with concern for partial adhesive bowel obstruction. Umbilical hernia containing large bowel, uninvolved in current obstruction. No evidence of bowel threat or compromise.
AVSS
Labs unremarkable
Clinical and radiographic improvement. Plan for trial of clears today.
In-depth discussion with the patient regarding the natural history and pathophysiology of bowel obstructions. Dietary education was provided. We also discussed her findings of 2 small areas of a ventral incisional hernia. Recommend outpatient
follow-up to further discuss and coordinate management as an outpatient. We discussed the importance of weight loss and the success of any future hernia repair. All questions answered.
Plan:
-- Clears
Subjective Data
-
Date of Service: April 06, 2025
No complaints. Denies any abdominal pain. No nausea or vomiting. Multiple loose stools overnight. Passing flatus. Reports eating several large salads prior to the onset of her symptoms. She has previously done this over the course of the past
year without any issues. She denies any intermittent more mild attacks over the past year.
Objective Data
-
Intake and Output
04/05/25 04/06/25 04/07/25
06:59 06:59 06:59
Intake Total 2044 / 5 880 / 880
Output Total 990 / 990 300 / 300
Balance 1055 / 1055 580 / 580
Intake:
IV fluids (Total) 1725 / 1725 750 / 750
IV piggybacks 200 / 200 100 / 100
Amount instilled into GI Tube ( 120 / 120 30 / 30
Total)
Jewell Sump 120 / 120 30 / 30
Output:
Gastrointestinal tube output ( 990 / 990 300 / 300
Total)
Jewell Sump 990 / 990 300 / 300
Other:
Number of approximated MODERATE 3 4
amounts of urine
Number of approximated LARGE 1
amounts of urine
Number of unmeasured liquid
stools
Rectum 6
Vital Signs
Temp Pulse Resp BP Pulse Ox
99.0 F 89 18 145/85 94
04/06/25 08:14 04/06/25 08:14 04/06/25 08:14 04/06/25 08:14 04/06/25 08:14
Lab Results
04/06/25 06:59
04/06/25 06:59
Calcium 8.9 mg/dl (8.4-10.2) 04/06/25 06:59
Magnesium 1.7 mg/dl (1.6-2.3) 04/06/25 06:59
Total Bilirubin 0.7 mg/dl (0.2-1.3) 04/04/25 05:55
AST 20 U/L (14-36) 04/04/25 05:55
ALT 17 U/L (0-35) 04/04/25 05:55
Alkaline Phosphatase 50 U/L (38-126) 04/04/25 05:55
Total Protein 5.8 g/dl (6.3-8.2) L D 04/04/25 05:55
Albumin 3.4 g/dl (3.5-5.0) L D 04/04/25 05:55
Physical Exam
-
Gen: NAD
Abd: soft, obese, NT/ND, non-peritoneal, prior incisions well healed
Patient has a orr catheter: No
Patient has a central line: No
[2025-04-06] MEDS: D5LR IV (13:01)
--- NOTE | 2025-04-06 13:33 | W.PN.HOSP.TC ---
Today's Communication/Plan
-
Assessment / Plan
Assessment / Plan
General: No Apparent Distress, Comfortable and Conversant
HEENT: NormoCephalic, Moist mucous membranes, Atraumatic
Respiratory: Clear and Non Labored Respirations
Cardiac: S1/S2 and Regular Rhythm; No Rub or Gallop
GI: Soft, Non Tender, Non Distended and Normal Bowel Sounds
Musculoskeletal: No Edema, no deformity
: NO Perera
Neuro: Awake, Alert, Nonfocal/grossly intact
Psych: Calm and Intact Judgment/Insight
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
non-radiating abdominal pain for 1 day. Noticed absent gas for [address] showed SBO. Improving
Accidental mild pericardial thickening on CT
# SBO most liekly 2/2 adhesions
- Multiple bowel movements after Gastrografin administration
- NG tube removed
- Diet advanced to clears
- Appreciate general surgery guidance, will advance diet as tolerated
- IV Protonix 40 mg every 12H
#Mild hypercalcemia
-resolved
-2/2 vomiting and dehydration
#Mild leukocytosis
-most liekly 2/2 acute disease
-resolved
#Mild sinus tachy with sinus arrhythmia
2/2 pain and dehydration
-resolved
-telemetry without clinically significant arrhythmia
#Anxiety
#HLD
hold meds, restart when able to take PO
#Small umbilical hernia containing knuckle of large bowel
-nonobstructed
#Mild pericardial thickening
No checst pain
Echo 04/06/2025 unremarkable
#Diverticulosis w/o diverticulitis
-eventual high fiber diet
#Morbid obesity
-BMI 41.7
-advised to decrease calorie intake
#GERD
-PPI BID
- cbc in AM
DVT ppx hep
Full code
Anticipated Discharge: 24 - 48 hours
Subjective/Interval History
-
Date of Service: April 06, 2025
Patient was seen and examined at bedside. Feeling much better now with multiple bowel movements and NG tube removed.
Objective Data
-
Labs:
Laboratory Results
04/06/25
06:59
WBC 5.5
Hgb 12.7
Hct 36.9 L
Plt Count 246
Sodium 137
Potassium 3.5
Chloride 102
Carbon Dioxide 35 H
BUN 5 L
Creatinine 0.5 L
Glucose 91
Calcium 8.9
Vital Signs:
Vital Signs
Temp Pulse Resp BP Pulse Ox
99.0 F 89 18 145/85 94
04/06/25 08:14 04/06/25 08:14 04/06/25 08:14 04/06/25 08:14 04/06/25 12:14
I&O
04/05/25 04/06/25 04/07/25
06:59 06:59 06:59
Intake Total 2044 / 2044 880 / 880
Output Total 990 / 990 300 / 300
Balance 1055 / 1055 580 / 580
Review of Systems
-
History Source: Patient
All other systems: Reviewed and negative
Physical Exam
-
General: No Apparent Distress
--- NOTE | 2025-04-06 14:35 | CM ---
Patient seen at bedside
NG removed
Clear liquid diet
IMM explained & signed. In chart
PLAN: Home, no needs anticipated when stable
son to transport
[2025-04-06 15:20] VITALS: BP 144/85
[2025-04-06] MEDS: ZOLOFT 50 MG PO (17:04)
[2025-04-06] MEDS: BENADRYL IV (22:26)
--- NOTE | 2025-04-06 22:46 | PTCARENOTE ---
Patient called stating her IV was causing her significant pain/discomfort and asked me to remove it. I explained usually we encourage patients to maintain IV access until discharge. Educated on need and importance. Pt still requesting it be removed
and is understanding that if the need comes, she may need to have another one placed. PIV removed from [facility].
[2025-04-06] MEDS: MELATONIN 5 MG PO (23:04)
[2025-04-06 23:18] VITALS: BP 135/81
--- NOTE | 2025-04-07 02:19 | DOWNTIME ---
There was a [employer] Client Kitchen Clerk Downtime on 04/07/2025 from 0100 to 04/07/2025 at 0215. Downtime documentation of patient's care, including medication administrations, has been reconciled in the electronic record per guidelines. Refer to the
patient's paper chart under the miscellaneous tab to see printed paper medication records and downtime forms.
[2025-04-07 03:10] VITALS: BP 109/54
[2025-04-07 07:10] VITALS: BP 135/78
--- NOTE | 2025-04-07 07:22 | W.PN.HOSP.TC ---
Today's Communication/Plan
-
d/c home if she tolerate low residue diet for lunch
Assessment / Plan
Assessment / Plan
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
non-radiating abdominal pain for 1 day. Noticed absent gas for [address] showed SBO. Improving
Accidental mild pericardial thickening on CT
# SBO most liekly 2/2 adhesions
- Multiple bowel movements after Gastrografin administration
- Diet advanced to low residue per surgery
- Appreciate general surgery guidance, will advance diet as tolerated
- switch iv protonix to home pepcid
#Mild hypercalcemia
-resolved
-2/2 vomiting and dehydration
#Mild leukocytosis
-most liekly 2/2 acute disease
-resolved
#Mild sinus tachy with sinus arrhythmia
2/2 pain and dehydration
-resolved
-telemetry without clinically significant arrhythmia
#Anxiety
#HLD
home meds
#Small umbilical hernia containing knuckle of large bowel
-nonobstructed
#Mild pericardial thickening
No checst pain
Echo 04/06/2025 unremarkable
#Diverticulosis w/o diverticulitis
#Morbid obesity
-BMI 41.7
-advised to decrease calorie intake
#GERD
- home pepcid
DVT ppx hep
Full code
Anticipated Discharge: Today
Subjective/Interval History
-
Date of Service: April 07, 2025
AFVSS. no new complaints. + flatus and + BM
Objective Data
-
Vital Signs:
Vital Signs
Temp Pulse Resp BP Pulse Ox
99.1 F 69 16 109/54 93
04/07/25 03:10 04/07/25 03:10 04/07/25 03:10 04/07/25 03:10 04/07/25 03:10
I&O
04/06/25 04/07/25 04/08/25
06:59 06:59 06:59
Intake Total 880 / 880 960 / 960
Output Total 300 / 300
Balance 580 / 580 960 / 960
Review of Systems
-
History Source: Patient
All other systems: Reviewed and negative
Physical Exam
-
General: Well Nourished, No Apparent Distress and Obese
HEENT: Normocephalic
Respiratory: Clear to Auscultation
Cardiac: Regular Rhythm
GI: Soft, Nontender and Nondistended
Neuro: Awake, Alert, Oriented and AO x 3
Psych: Calm
[2025-04-07] MEDS: NSS (PRESERVATIVE FREE) IV (08:25)
[2025-04-07] MEDS: PROTONIX IV IV (08:25)
[2025-04-07] MEDS: HEPARIN 5000 UNITS SC (09:39)
[2025-04-07] MEDS: PEPCID 20 MG PO (10:06)
--- NOTE | 2025-04-07 10:25 | CM ---
patient seen at bedside
IMM signed yesterday in chart
per hospitalist patient to discharge after low residue lunch today
PLAN: Home, no needs
son to transport
--- NOTE | 2025-04-07 10:52 | W.PN.GS2 ---
Today's Communication / Plan
-
LRD
Assessment / Plan
-
Patient is a 70 yo F p/w SBO likely secondary to adhesions and dietary indiscretion
CT imaging reviewed with concern for partial adhesive bowel obstruction. Umbilical hernia containing large bowel, uninvolved in current obstruction. No evidence of bowel threat or compromise.
AVSS
Labs unremarkable
Clinical and radiographic improvement. Plan for LRD today.
All questions answered.
Plan:
-- Adv to LRD, DC home when tolerating
All other care as per rpimary team
Pls call with ?s
Subjective Data
-
Date of Service: April 07, 2025
AFVSS, clinically resolved, passing flatus and BM, denies n.v, denies abd pain, kelin cld
Objective Data
-
Intake and Output
04/06/25 04/07/25 04/08/25
06:59 06:59 06:59
Intake Total 880 / 880 960 / 960
Output Total 300 / 300
Balance 580 / 580 960 / 960
Intake:
Oral fluids 960 / 960
IV fluids (Total) 750 / 750
IV piggybacks 100 / 100
Amount instilled into GI Tube ( 30 / 30
Total)
[place] Sump 30 / 30
Output:
Gastrointestinal tube output ( 300 / 300
Total)
[place] Sump 300 / 300
Other:
Number of approximated MODERATE 4 1
amounts of urine
Number of unmeasured liquid
stools
Rectum 6
Vital Signs
Temp Pulse Resp BP Pulse Ox
98.4 F 77 16 135/78 94
04/07/25 07:10 04/07/25 07:10 04/07/25 07:10 04/07/25 07:10 04/07/25 07:10
Lab Results
04/06/25 06:59
04/06/25 06:59
Calcium 8.9 mg/dl (8.4-10.2) 04/06/25 06:59
Magnesium 1.7 mg/dl (1.6-2.3) 04/06/25 06:59
Total Bilirubin 0.7 mg/dl (0.2-1.3) 04/04/25 05:55
AST 20 U/L (14-36) 04/04/25 05:55
ALT 17 U/L (0-35) 04/04/25 05:55
Alkaline Phosphatase 50 U/L (38-126) 04/04/25 05:55
Total Protein 5.8 g/dl (6.3-8.2) L D 04/04/25 05:55
Albumin 3.4 g/dl (3.5-5.0) L D 04/04/25 05:55
Physical Exam
-
Gen: NAD
Abd: soft, obese, nd, nt
Patient has a orr catheter: No
Patient has a central line: No
[2025-04-07 11:44] VITALS: BP 140/86
--- NOTE | 2025-04-07 13:39 | W.DCSUMMARY ---
Discharge Summary
Discharge Data
Date of Admission: 04/03/25
Date of Discharge: 04/07/25
-
Pending Results: No
Hospital Course
Discharging Physician : Saeid Fragoso MD ; Avni Santos DO
Disposition : Home
Primary care physician : Mitzy Hurst
Principal Discharge diagnosis : SBO most likely secondary to adhesions
Chronic Discharge diagnosis : Anxiety, small umbilical hernia, diverticulosis, morbid obesity, GERD
Hospital Course : 70 yo female with a h/o x2, tubal ligation and ex lap for SBR for a perforated jejunum (09/2023) presented with vomiting and abdominal pain for 1 day after she ate a large salad.
An NGT was placed in the ED with some improvement in symptoms. Her abdomen was distended with a periumbilical hernia present which was soft/reducible. Ct was obtained with findings as below. General surgery was consulted. Plan was made for
continuous NGT decompression, n.p.o. with ice chips, analgesics and antiemetics as needed. Once her symptoms improved to an extent Plan was made for a small bowel follow-through study however when patient was given Gastrografin for the study she
had multiple bowel movements. Eventually the nasogastric tube was removed and she was placed on clear liquid diet which was later changed to low residue and she was able to tolerate that before discharge. During her admission she had mild
hypercalcemia, mild leukocytosis, mild sinus tachycardia that resolved during her stay in the hospital. It was found that there were 2 small areas of ventral incisional hernia. Surgery team recommended outpatient follow-up and management.
CT of the abdomen pelvis showed mild pericardial thickening therefore an echo was also done with results as below. She denies of any chest pain.
On the day of discharge patient was afebrile, vitals remained stable. She was able to tolerate the diet without any abdominal pain, nausea or vomiting. She was able to urinate as usual. Had 1 bowel movement on the day of discharge.
Return precautions were reviewed with the patient. She voices understanding.
Important imaging findings : CT Abd/pelvis W Iv Cont 04/03/2025
Small umbilical hernia containing knuckle of large bowel, nonobstructed.
Gastric and proximal to mid small bowel dilatation (dilatation most prominent about jejunal anastomosis) limited in evaluation without oral contrast, suspicious for at least partial small bowel obstruction. No free air.
Distal colonic diverticulosis. Unremarkable appendix.
Mild pericardial thickening
SBFT 04/05/2025:
No focal small bowel abnormality including no small bowel obstruction.
Rapid small bowel transit time of approximately 30 minutes.
Procedure findings : TRANSTHORACIC ECHOCARDIOGRAM 04/06/2025
A complete Transthoracic Echocardiogram was performed utilizing Two-Dimensional evaluation with color flow and spectral Doppler analysis.
PHYSICIAN INTERPRETATION
Left Ventricle:
Normal left ventricular size, wall thickness and systolic function. No regional wall motion abnormalities are seen. No regional wall motion abnormalities. Ejection fraction is 55-60% by visual assessment. Normal LV diastolic function.
Right Ventricle:
Right ventricular size and systolic function are within normal limits.
Left Atrium:
Indexed left atrial volume is within normal range (15-34 ml/m2).
Right Atrium:
The right atrium is normal in size and structure. The inferior vena cava appears normal.
Interatrial Septum:
The interatrial septum appears normal and intact, with no evidence of interatrial shunting.
Aortic Valve:
Aortic valve is not well seen; no stenosis and no evidence of aortic regurgitation.
Mitral Valve:
Mitral valve opens normally. No evidence of regurgitation.
Tricuspid Valve:
Trace tricuspid regurgitation. Estimated pulmonary artery pressure of 33 mmHg assuming a right atrial pressure of 3 mmHg.
Pulmonic Valve:
The pulmonic valve is not well seen.
Aorta:
The aorta, from all segments that were visualized, appears normal in dimension, with no evidence of dilatation or obstruction.
Pericardium:
There is no evidence of pericardial effusion.
Discharge Plan
-
Patient Disposition: Home (Routine Discharge)
Discharge Diagnosis/Procedures: SBO most likely secondary to adhesions,
Mild hypercalcemia, mild leukocytosis, mild sinus tachycardia, anxiety, small umbilical hernia, mild pericardial thickening, diverticulosis, morbid obesity, GERD
Condition: Fair
Diet: Low Fiber
Activity: No restrictions
Driving Restrictions: As prior to admission
Bathing Restrictions: None
Activity Restrictions/Additional Instructions:
It might help to start with foods that are easy to digest, like soup, pudding, toast, or eggs. You can eat other types of foods when you feel ready
Referrals:
Irvin Maloney MD [Active, Surgical] - in one month
Mitzy Hurst MD [Family Provider, Family Practice] - in less than 1 week
Additional Discharge Medication Instructions: You were seen at the [facility] with concerns of small bowel obstruction. CT imaging showed partial adhesive bowel obstruction. Umbilical hernia containing large bowel, uninvolved
in current obstruction. No evidence of bowel threat or compromise. A nasogastric tube was placed and initially to decompress and eventually removed. General surgery team was also part of your care plan. You were given clear liquid diet after NG
tube was removed which was later changed to low residue diet which you tolerated without any abdominal pain, nausea or vomiting. There were 2 small areas of a ventral incisional hernia. Recommend outpatient follow-up with general surgery to
further discuss and coordinate management as an outpatient. I encourage you to lose some weight which will increase the success rate of any future hernia repair. If you develop any new or worrisome concerns please return to the emergency.
You may use Pepcid 20 mg tablet on a daily basis for acid reflux.
Prescriptions:
Continued
meloxicam 15 mg Tablet
15 mg PO QPM
sertraline [Zoloft] 50 mg Tablet
50 mg PO QPM
rosuvastatin 5 mg Tablet
5 mg PO QPM
polyethylene glycol 3350 17 gram Powder In Packet
17 g PO Q48H
therapeutic multivitamin Tablet
1 tab PO DAILY
famotidine [Pepcid] 20 mg Tablet
20 mg PO DAILYPRN PRN (Reason: heartburn)
calcium carbonate [Tums] 200 mg calcium (500 mg) Tablet,Chewable
200 mg PO DAILYPRN PRN (Reason: upset stomach)
Afrin (oxymetazoline) 0.05 % Mist
1 spray INTRANASAL HS
calcium carbonate-vitamin D3 [Calcium 500 + D] 500 mg-10 mcg (400 unit) Tablet
1 tab PO DAILY
Visbiome 112.5 billion cell Capsule
1 cap PO DAILY
psyllium husk [Metamucil] 0.4 gram Capsule
1.2 g PO Q48H
Discharge Orders:
Discharge Patient (As Directed); Ordered 04/07/25
Ordered By: aSeid Fragoso
Discharge Date and Time
Print Language: MICRONESIAN
== END 2025-04-07 15:35 | disposition home or self-care (01) | DRG 389 ==
LOC: 2 SOUTH 10:24
PROVIDERS: Emergency Medicine; ADMITTING PHYSICIAN Internal Medicine; ATTENDING PHYSICIAN Internal Medicine; CONSULT PHYSICIAN Surgery; EMERGENCY PHYSICIAN Emergency Medicine; FAMILY PHYSICIAN Family Medicine
DX: K56.50 Intestinal adhesions [bands], unspecified as to partial versus complete obstruction (principal); Z68.41 Body mass index [BMI] 40.0-44.9, adult; E83.52 Hypercalcemia; E78.00 Pure hypercholesterolemia, unspecified; E66.01 Morbid (severe) obesity due to excess calories; R00.0 Tachycardia, unspecified; K21.9 Gastro-esophageal reflux disease without esophagitis; F41.9 Anxiety disorder, unspecified; K42.9 Umbilical hernia without obstruction or gangrene; E86.0 Dehydration; D72.829 Elevated white blood cell count, unspecified; K43.2 Incisional hernia without obstruction or gangrene; F32.A Depression, unspecified; K57.30 Diverticulosis of large intestine without perforation or abscess without bleeding; Z87.891 Personal history of nicotine dependence; Z79.899 Other long term (current) drug therapy
CPT/HCPCS: 43752; 71045; 74018; 74177; 74250; 80048; 80053; 81003; 81015; 83690; 83735; 84443; 85025; 85652; 86140; 87086; 93005; 93306; 96361; 96365; 96375; 99285; Q9967